=== PATIENT | female | born 2000 | race Caucasian/White ===

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

== ENCOUNTER 2021-11-20 07:38 | Emergency (ER) | payer BC, MEDICAID, OTHER ==
[2021-11-20 07:46] VITALS: BP 154/84; PULSE 159; RESP 18; TEMP 97.8
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
[2021-11-20 09:44] LABS: Amphetamine Screen,Urine Detected (NotDetected); Barbiturate Screen,Urine Not Detected (NotDetected); Benzodiazepines Screen,Urine Not Detected (NotDetected); Cocaine Screen,Urine Not Detected (NotDetected); Methadone Screen, Urine Not Detected (NotDetected); Opiate Screen,Urine Not Detected (NotDetected); Oxycodone Screen, Urine Not Detected (NotDetected); Phencyclidine Screen,Urine Not Detected (NotDetected); Tricyclic Antidepressant,Urine Not Detected (NotDetected); Urn Cannabinoid Scrn Detected (NotDetected)
[2021-11-21 14:27] LABS: C. trachomatis,PCR Positive (Neg,Equiv); Chlamydia trachomatis Source Urine; N. gonorrhoeae,PCR Negative (Neg,Equiv); Neisseria Source Urine
== END 2021-11-20 08:20 | disposition left against medical advice (07) ==
LOC: EC 07:38
DX: Z20.2 Contact with and (suspected) exposure to infections with a predominantly sexual mode of transmission (principal); Z59.00 Homelessness unspecified; F41.9 Anxiety disorder, unspecified; F32.A Depression, unspecified; F17.290 Nicotine dependence, other tobacco product, uncomplicated
CPT/HCPCS: 80306; 81025; 82075; 87491; 87591; 99283

== ENCOUNTER 2021-12-10 08:41 | Inpatient (IN) | payer MEDICAID, OTHER ==
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
[2021-12-10 09:35] LABS: Appearance,Urine Cloudy (Clear); Bacteria,Urine Rare /hpf; Bilirubin,Urine Negative (Negative); Blood,Urine Negative (Negative); Budding Yeast,Urine Many /hpf; Color,Urine Yellow; Glucose,Urine (UA) Negative (Negative); Ketones,Urine Negative (Negative); Leukocyte Esterase,Urine Large (Negative); Mucus,Urine Rare /hpf; Nitrite,Urine Negative (Negative); Protein,Urine Negative (Negative); RBC,Urine <1 /hpf (0-5); Specific Gravity,Urine 1.011 (1.001-1.035); Squamous Epithelial Cell,Urine 4 /hpf (0-4); Urobilinogen,Urine <2.0 mg/dL (<2.0); WBC,Urine 14 /hpf (0-5)
[2021-12-10 09:51] LABS: Amphetamine Screen,Urine Not Detected (NotDetected); Barbiturate Screen,Urine Not Detected (NotDetected); Benzodiazepines Screen,Urine Not Detected (NotDetected); Cocaine Screen,Urine Not Detected (NotDetected); Methadone Screen, Urine Not Detected (NotDetected); Opiate Screen,Urine Not Detected (NotDetected); Oxycodone Screen, Urine Not Detected (NotDetected); Phencyclidine Screen,Urine Not Detected (NotDetected); Tricyclic Antidepressant,Urine Not Detected (NotDetected); Urn Cannabinoid Scrn Detected (NotDetected)
[2021-12-10 10:29] LABS: Basophils % (A) 0 %; Eosinophils # (A) 0.1 k/uL (0-0.7); Eosinophils % (A) 2 %; HCT 38.3 % (34.0-46.0); HGB 13.7 gm/dL (11.4-16.0); Hyperchromasia Slight; Lymphocytes # (A) 0.9 k/uL (1.0-4.8); Lymphocytes % (A) 13 %; MCH 30.7 pg (25.0-35.0); MCHC 35.8 g/dL (31.0-37.0); MCV 85.7 fL (80.0-100.0); Mean Platelet Volume 6.3; Monocytes # (A) 0.3 k/uL (0-1.0); Monocytes % (A) 4 %; Neutrophils # (A) 5.5 k/uL (1.3-7.7); Neutrophils % (A) 79 %; Platelet Count 356 k/uL (150-450); Poikilocytosis Slight; RBC 4.47 m/uL (3.80-5.40)
[2021-12-10 10:41] LABS: ALT 10 U/L (4-34); AST 14 U/L (14-36); African American GFR (CKD) >90 (>60 ml/min/1.73 sqM); Albumin 4.2 g/dL (3.5-5.0); Alkaline Phosphatase 65 U/L (38-126); Anion Gap 5 mmol/L; Blood Urea Nitrogen 9 mg/dL (7-17); Calcium 9.2 mg/dL (8.4-10.2); Carbon Dioxide 29 mmol/L (22-30); Chloride 105 mmol/L (98-107); Glucose 101 mg/dL (74-99); Non-African American GFR(CKD) >90 (>60 ml/min/1.73 sqM); Potassium 3.8 mmol/L (3.5-5.1); Sodium 139 mmol/L (137-145); Total Bilirubin 1.2 mg/dL (0.2-1.3); Total Protein 7.3 g/dL (6.3-8.2)
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
[2021-12-10] MEDS ORDERED: HALOPERIDOL LACTATE 5 MG/ML 1 ML VIAL IM PRN (16:18)
[2021-12-10] MEDS ORDERED: ACETAMINOPHEN TAB 325 MG TAB PO PRN (16:18)
[2021-12-10] MEDS ORDERED: LORazepam 1 MG TAB PO PRN (16:18)
[2021-12-10] MEDS ORDERED: MAGNESIUM HYDROXIDE 2,400 MG/10 ML CUP PO PRN (16:18)
[2021-12-10] MEDS ORDERED: MAG HYDROX/AL HYDROX/SIMETH 30 ML CUP PO PRN (16:18)
[2021-12-10] MEDS ORDERED: LORazepam 2 MG/ML INJ IM PRN (16:20)
[2021-12-10] MEDS ORDERED: haloperidoL 5 MG TAB PO PRN (16:21)
[2021-12-10] MEDS ORDERED: traZODone HCL 50 MG TAB PO PRN (16:22)
[2021-12-10] MEDS: NICOTINE 14MG/24HR PATCH TRANSDERM SCH (17:16)
[2021-12-11] MEDS: NICOTINE 14MG/24HR PATCH TRANSDERM SCH (08:40)
--- NOTE | 2021-12-11 12:17 | P.HP ---
Psychiatric H&P - . H&P Date: 12/11/21 History & Physical: Allergies Allergy/AdvReac Type Severity Reaction Status Date / Time No Known Allergies Allergy Verified 12/10/21 10:29 Vital Signs Temp 99.1 F 12/10/21 16:43 Pulse 104 H 12/10/21 16:43 Resp 16 12/10/21 16:43 BP 120/73 12/10/21 16:43 Pulse Ox 98 12/10/21 08:43 Intake & Output 12/10/21 12/11/21 12/11/21 18:59 06:59 18:59 Weight 64.495 kg Laboratory Last Values WBC 7.0 k/uL (4.0-11.0) 12/10/21 10:15 RBC 4.47 m/uL (3.80-5.40) 12/10/21 10:15 Hgb 13.7 gm/dL (11.4-16.0) 12/10/21 10:15 Hct 38.3 % (34.0-46.0) 12/10/21 10:15 MCV 85.7 fL (80.0-100.0) 12/10/21 10:15 MCH 30.7 pg (25.0-35.0) 12/10/21 10:15 MCHC 35.8 g/dL (31.0-37.0) 12/10/21 10:15 RDW 15.0 % (11.5-15.5) 12/10/21 10:15 Plt Count 356 k/uL (150-450) 12/10/21 10:15 MPV 6.3 12/10/21 10:15 Neutrophils % 79 % 12/10/21 10:15 Lymphocytes % 13 % 12/10/21 10:15 Monocytes % 4 % 12/10/21 10:15 Eosinophils % 2 % 12/10/21 10:15 Basophils % 0 % 12/10/21 10:15 Neutrophils # 5.5 k/uL (1.3-7.7) 12/10/21 10:15 Lymphocytes # 0.9 k/uL (1.0-4.8) L 12/10/21 10:15 Monocytes # 0.3 k/uL (0-1.0) 12/10/21 10:15 Eosinophils # 0.1 k/uL (0-0.7) 12/10/21 10:15 Basophils # 0.0 k/uL (0-0.2) 12/10/21 10:15 Hyperchromasia Slight 12/10/21 10:15 Poikilocytosis Slight 12/10/21 10:15 Sodium 139 mmol/L (137-145) 12/10/21 10:15 Potassium 3.8 mmol/L (3.5-5.1) 12/10/21 10:15 Chloride 105 mmol/L (98-107) 12/10/21 10:15 Carbon Dioxide 29 mmol/L (22-30) 12/10/21 10:15 Anion Gap 5 mmol/L 12/10/21 10:15 BUN 9 mg/dL (7-17) 12/10/21 10:15 Creatinine 0.62 mg/dL (0.52-1.04) 12/10/21 10:15 Est GFR (CKD-EPI)AfAm >90 (>60 ml/min/1.73 sqM) 12/10/21 10:15 Est GFR (CKD-EPI)NonAf >90 (>60 ml/min/1.73 sqM) 12/10/21 10:15 Glucose 101 mg/dL (74-99) H 12/10/21 10:15 Calcium 9.2 mg/dL (8.4-10.2) 12/10/21 10:15 Total Bilirubin 1.2 mg/dL (0.2-1.3) 12/10/21 10:15 AST 14 U/L (14-36) 12/10/21 10:15 ALT 10 U/L (4-34) 12/10/21 10:15 Alkaline Phosphatase 65 U/L (38-126) 12/10/21 10:15 Total Protein 7.3 g/dL (6.3-8.2) 12/10/21 10:15 Albumin 4.2 g/dL (3.5-5.0) 12/10/21 10:15 TSH 2.210 mIU/L (0.465-4.680) 12/10/21 10:32 Urine Color Yellow 12/10/21 09:15 Urine Appearance Cloudy (Clear) H 12/10/21 09:15 Urine pH 8.0 (5.0-8.0) 12/10/21 09:15 Ur Specific Graham 1.011 (1.001-1.035) 12/10/21 09:15 Urine Protein Negative (Negative) 12/10/21 09:15 Urine Glucose (UA) Negative (Negative) 12/10/21 09:15 Urine Ketones Negative (Negative) 12/10/21 09:15 Urine Blood Negative (Negative) 12/10/21 09:15 Urine Nitrite Negative (Negative) 12/10/21 09:15 Urine Bilirubin Negative (Negative) 12/10/21 09:15 Urine Urobilinogen <2.0 mg/dL (<2.0) 12/10/21 09:15 Ur Leukocyte Esterase Large (Negative) H 12/10/21 09:15 Urine RBC <1 /hpf (0-5) 12/10/21 09:15 Urine WBC 14 /hpf (0-5) H 12/10/21 09:15 Ur Squamous Epith Cells 4 /hpf (0-4) 12/10/21 09:15 Urine Bacteria Rare /hpf (None) H 12/10/21 09:15 Urine Mucus Rare /hpf (None) H 12/10/21 09:15 Urine Yeast (Budding) Many /hpf (None) H 12/10/21 09:15 Urine HCG, Qual Not Detected (Not Detectd) 12/10/21 09:15 Urine Opiates Screen Not Detected (NotDetected) 12/10/21 09:15 Ur Oxycodone Screen Not Detected (NotDetected) 12/10/21 09:15 Urine Methadone Screen Not Detected (NotDetected) 12/10/21 09:15 Ur Propoxyphene Screen Not Detected (NotDetected) 12/10/21 09:15 Ur Barbiturates Screen Not Detected (NotDetected) 12/10/21 09:15 U Tricyclic Antidepress Not Detected (NotDetected) 12/10/21 09:15 Ur Phencyclidine Scrn Not Detected (NotDetected) 12/10/21 09:15 Ur Amphetamines Screen Not Detected (NotDetected) 12/10/21 09:15 U Methamphetamines Scrn Not Detected (NotDetected) 12/10/21 09:15 U Benzodiazepines Scrn Not Detected (NotDetected) 12/10/21 09:15 Urine Cocaine Screen Not Detected (NotDetected) 12/10/21 09:15 U Marijuana (THC) Screen Detected (NotDetected) H 12/10/21 09:15 Coronavirus (PCR) Not Detected (Not Detectd) 12/10/21 13:39 IDENTIFYING DATA: Patient is a 21-year-old, single, unemployed, female, who is currently in detention hold, who presents to the hospital from [facility], under petition for acute psychosis and bizarre behaviors. HPI: Patient presented to the hospital on 12/10/2021, brought into the hospital from the detention under petition for psychosis. Petition was filled out by Amanda Chairez (sill worker) who wrote: Inmate is often mute with minimal expression, suspicious, guarded, not attending to her ADLs. Stated at one point she is expressing psychosis and was mute. Inmate has difficulty comprehending basic commands due to psychosis." There is also suspicion that the patient had a bad accident with a head injury and was presenting with odd and psychotic behavior shortly after. As per EPS assessment, the patient was also noted to be very suspicious and guarded. She is minimal and conversation however would inquire from the EPS nurse what was written down on her paper. The patient was subsequently certified and admitted to the psychiatric unit. Upon evaluation on the psychiatric unit, the patient continues to display bizarre and disorganized behavior. She has been noted by staff to wander into other patient's rooms and often needs redirection. Oddly, before the initial psychiatric interview, the patient requested to go to the restroom. The patient did not go to the restroom and return for the interview. She got up multiple times during the psychiatric interview to "use the restroom." She however again just walk down the hallway and walked back up to the office. Upon assessment, the patient is minimal and conversation. She is unable to provide any clear history of events leading up to this hospitalization. When asked if she was taking any medications, the patient replies no. She does not respond to any assessment regarding any suicidal or homicidal ideation. She does not respond when answering if she is experiencing any auditory or visual hallucinations. Review of the patient's chart revealed that the patient has had a significant history of polysubstance abuse including methamphetamines and marijuana. The patient has also had previous overdose attempts with ibuprofen. She was last admitted onto our psychiatric unit in January 2020 however was discharged with no medications. She was not noted to be selectively mute then. The patient is currently incarcerated. Although she was unable to provide any history as to reasons why she was incarcerated, as per review, the patient has had multiple charges including breaking and entering, assault of a assistant chief of police, and has been in detention since 12/03/2021. PAST PSYCHIATRIC HISTORY: Patient is unable to provide any history at this time. Review of the patient's chart revealed previous diagnosis of methamphetamine use disorder, cannabis use disorder, other stimulant use disorder, and depression with a history of suicide by overdose. Previous psychiatric medications include Zoloft for anxiety. Unable to determine other medications at this time. She was last hospitalized on the psychiatric unit in January of 2020. Previous suicide attempts by overdose. PMH: Past Medical History: No Reported History Additional Past Medical History / Comment(s): Proteinuria History of Any Multi-Drug Resistant Organisms: None Reported Past Surgical History: No Surgical Hx Reported Additional Past Surgical History / Comment(s): [place] Teeth Removed Past Anesthesia/Blood Transfusion Reactions: No Reported Reaction Past Psychological History: Anxiety, Depression Smoking Status: Vaper Past Alcohol Use History: Occasional Past Drug Use History: None Reported ALLERGIES: NO KNOWN DRUG ALLERGIES CHEMICAL DEPENDENCY HISTORY: Patient has a significant history of marijuana, methamphetamine, and other psychostimulant use. FAMILY PSYCHIATRIC/SUBSTANCE USE HISTORY: Unable to determine at this time. SOCIAL HISTORY: Much of this history is through chart review. Patient was reportedly born in [place] and raised by her mother until her mother's in 2016. She is single, and has no children. She is currently unemployed. MENTAL STATUS EXAM: General Appearance: Patient appears to be stated age is alert and difficult to direct, and uncooperative. Slightly disheveled hygiene and grooming. Behavior: Patient is seated but display psychomotor agitation. Very poor eye contact. Speech: Patient's speech is nonspontaneous, minimal, low in volume, monotone. Mood/Affect: Patient states that she is "okay, affect is blunted and guarded. Suicidality/Homicidality: Unable to assess Perceptions: Unable to assess Though content/process: Patient appears to be responding to internal stimuli. Memory and concentration: Unable to assess. Judgment and insight: Poor STRENGTHS/WEAKNESSES: Unable to identify patient's strengths at this time. Weakness is that the patient is currently incarcerated and is displaying some significant symptoms of severe mental illness. INTELLECT: Unable to assess IMPRESSIONS: Acute psychotic episode Rule out schizoaffective disorder Cannabis use disorder Methamphetamine use disorder, as per history PLAN: -Patient is admitted under involuntary status to MHU for stabilization of psychiatric symptoms and safety. A second certification was completed and along with petition will be filed for court. -Medications : Risperdal 1 mg by mouth twice a day for acute psychosis. Likely transition the patient to a long-acting injectable Such as Risperdal Consta or Invega Sustenna. -Ativan and Haldol PRN for agitation/aggression -Patient was informed of the risks, benefits and side effects of the medication however is unable to acknowledge understanding. -Internal medicine to perform history and physical examination. -SW on board for discharge planning. Encourage patient to participate in groups to work on coping skills. 12/11/21 12:17 12/11/21 12:17
--- NOTE | 2021-12-11 17:56 | P.HPMEDMHU ---
<Jeremías Chase - Last Filed: 12/11/21 17:46> History of Present Illness H&P Date: 12/11/21 History of Presenting Illness: The patient is a 21-year-old female with a past medical history of polysubstance abuse with marijuana and methamphetamines as well as other psychostimulant usage. She is currently admitted to the inpatient mental health unit under psychiatry team for evaluation of psychosis. Patient was [facility] from [facility] and was brought in for acute psychosis and bizarre behaviors. We have been consulted for medical management throughout hospitalization. upon evaluation in mental health unit, patient very cautious and skittish with paranoid behaviors. Answered only limited questions and answered these questions with only yes or no answers. She denied experiencing any pain or discomfort. She denied any chances of and denied any problems with urination. Patient was ambulatory on unit and was ambulatory with a steady gait. labs reviewed. CBC and CMP unremarkable TSH normal findings at 2.210. Urinalysis positive for leukocytes and 14 WBCs, patient denies urinary complaints at this time. Urine hCG negative for . Urine drug screen positive for marijuana. Review of systems: Pertinent positives and negatives as discussed in HPI, a complete review of systems was performed and all other systems are negative. Physical exam: Vital signs reviewed and stable. General: Nontoxic, no distress and appears stated age. disheveled appearance Derm: Skin warm and dry, normal coloration for ethnicity. Head: Atraumatic, normocephalic and symmetric. Eyes: EOMs intact, no lid lag, and anicteric sclera Mouth: no lip lesions, mucus membranes moist Cardiovascular: regular rate and rhythm with normal S1S2, no murmur, positive posterior tibial pulses bilaterally, and cap refill < 2 seconds. Lungs: Respirations even, regular, and unlabored on room air. Lungs CTA bilaterally, no rhonchi, no rales, no wheezing, and no accessory muscle usage. Abdominal: soft, nontender to palpation, no guarding, no appreciable organomegaly Ext: ROM intact. No gross muscle atrophy, no edema, no contractures Neuro: Speech clear, face symmetrical. Pt showing no signs of obvious neurological deficits, however limited exam due to pt's only answering limited questions and with only yes and no answers. Psych: patient appeared very cautious and skittish with paranoid behaviors. Assessment and Plan of Care: Methamphetamine abuse Psychostimulant usage Cannabis use/abuse -urine drug screen only positive for marijuana at this time. -Patient to receive continued education on the risks of continued drug use/abuse. Psychosis Paranoia -Management per primary admitting psychiatry team. -Provide safe and supportive care. Thank you for allowing us to participate in the care of this pleasant patient. Do not hesitate to contact us with questions. Someone can be reached from the [facility] hospitalist group all hours of the day at [phone] or via [employer]. Past Medical History Past Medical History: No Reported History Additional Past Medical History / Comment(s): Proteinuria History of Any Multi-Drug Resistant Organisms: None Reported Past Surgical History: No Surgical Hx Reported Additional Past Surgical History / Comment(s): [place] Teeth Removed Past Anesthesia/Blood Transfusion Reactions: No Reported Reaction Past Psychological History: Anxiety, Depression Smoking Status: Vaper Past Alcohol Use History: Occasional Past Drug Use History: None Reported - Past Family History Mother Family Medical History: Asthma Additional Family Medical History / Comment(s): , anoxic encephalopathy family Family Medical History: Unable to Obtain Medications and Allergies Home Medications Medication Instructions Recorded Confirmed Type No Known Home Medications 12/10/21 12/10/21 History Allergies Allergy/AdvReac Type Severity Reaction Status Date / Time No Known Allergies Allergy Verified 12/10/21 10:29 Physical Exam Vitals: Vital Signs Temp Pulse Resp BP 12/10/21 16:43 99.1 F 104 H 16 120/73 Cranial Nerve Examination - Cranial Nerves Cranial Nerve II- Optic: Intact Cranial Nerve III- Oculomotor: Intact Cranial Nerve IV- Trochlear: Intact Cranial Nerve V- Trigeminal: Intact Cranial Nerve - Abducens: Intact Cranial Nerve VII- Facial: Intact Cranial Nerve VIII- Auditory: Intact Cranial Nerve IX- Glossopharyngeal: Intact Cranial Nerve X- Vagus: Intact Cranial Nerve XI- Accessory: Intact Cranial Nerve XII- Hypoglossal: Intact Results CBC & Chem 7: 12/10/21 10:15 12/10/21 10:15 Labs: Microbiology - Last 24 Hours (Table) 12/10/21 09:15 Urine Culture - Final Urine,Clean Catch <Karis Schmitz - Last Filed: 12/11/21 20:16> History of Present Illness Jeremías Chase NP rendered care for this patient independently, reviewed the findings and plan as documented in the note above. I did not physically speak with or examine the patient on this date. Physical Exam Osteopathic Statement: *. No significant issues noted on an osteopathic structural exam other than those noted in the History and Physical/Consult. Results CBC & Chem 7: 12/10/21 10:15 12/10/21 10:15 Labs: Microbiology - Last 24 Hours (Table) 12/10/21 09:15 Urine Culture - Final Urine,Clean Catch
[2021-12-11] MEDS ORDERED: diphenhydrAMINE 50 MG/ML 1 ML VIAL IM STA (21:22)
[2021-12-11] MEDS ORDERED: LORazepam 2 MG/ML INJ IM ONE (21:22)
[2021-12-12] MEDS: risperiDONE 1 MG TAB PO SCH ×3 (01:14→20:41)
[2021-12-12] MEDS: NICOTINE 14MG/24HR PATCH TRANSDERM SCH ×2 (08:03→13:54)
--- NOTE | 2021-12-12 11:29 | P.PN ---
Progress Note - Text Progress Note Date: 12/12/21 Interval History: Patient was seen wandering the hallways and was directable and agreeable to speak with the selling underwriter in her room. Patient is very minimal conversation. She is currently only alert to person and is unable to identify place and time. She refused her psychotropic medications. She does not respond to any questioning during the psychiatric interview. She asked why she was in the hospital and when answered, the patient replies that she did not know that she was in [facility]. She otherwise does not answer any other questions at this time. Mental Status Exam: General Appearance: Patient appears to be stated age is alert, directable, and mostly uncooperative. Behavior:. Patient is staring blankly and standing in the middle of her room. Speech: Patient's speech is nonspontaneous, minimal, monotone. Mood/Affect: Mood cannot be assessed. Affect appears to be flat. Suicidality/Homicidality: Unable to assess Perceptions: Unable to assess Though content/process: Unable to asses Memory and concentration: Grossly poor. Patient is alert and oriented to self only Judgment and insight: Poor Vital Signs Temp 99.1 F 12/10/21 16:43 Pulse 104 H 12/10/21 16:43 Resp 16 12/10/21 16:43 BP 120/73 12/10/21 16:43 Pulse Ox 98 12/10/21 08:43 Assessment Acute psychotic episode Rule out schizoaffective disorder Cannabis use disorder Methamphetamine use disorder, as per history Plan: -Patient continues to meet criteria for inpatient psychiatric admission for symptom stabilization and safety. A second certification was completed and along with petition will be filed for court. -Medications: Risperdal 1 mg by mouth twice a day for acute psychosis. We may have to await a court order for mental health treatment. -When necessary Ativan and Haldol for agitation/aggression. -SW on board for discharge planning. Encouraged the patient to participate in milieu.
[2021-12-13] MEDS: risperiDONE 1 MG TAB PO SCH (08:23)
[2021-12-13] MEDS: NICOTINE 14MG/24HR PATCH TRANSDERM SCH (08:23)
--- NOTE | 2021-12-13 13:29 | P.PN ---
Progress Note - Text Interval history: Patient was seen [wandering the hallways] and was too suspicious to speak with the writer editor. She mumbled when asked a few questions, but would not agree to interview. Taking qhs dose of risperdal but not am dose Mental status exam: General Appearance: [Patient appears to be older than stated age. Dressed casually] Behavior: Suspicious Speech: Low volume, minimal, mumbling Mood/Affect: Could not assess Suicidality/Homicidality: Could not assess Perceptions: Could not assess Though content/process: Appears to be suspicious Memory and concentration: Could not assess Judgment and insight: poor Assessment/Plan: Continue with current diagnosis. Patient continues to meet criteria for inpatient psychiatric admission for symptom stabilization and safety.[ Increase Risperdal to 2 mg twice a day] Monitor for medication compliance and for any psychotropic medication side effects. Will continue to monitor ongoing response to treatment. Encouraged participation in milieu.
[2021-12-13] MEDS: risperiDONE 2 MG TAB PO SCH (21:11)
[2021-12-14] MEDS: risperiDONE 2 MG TAB PO SCH ×2 (07:49→21:04)
[2021-12-14] MEDS: NICOTINE 14MG/24HR PATCH TRANSDERM SCH ×2 (07:49→21:04)
--- NOTE | 2021-12-14 14:36 | P.PN ---
Progress Note - Text Interval history: Patient was seen [wandering the hallways] but she refused multiple attempts for an interview. Mental status exam: General Appearance: 21-year-old female, appears older than stated age, dressed casually, usually wandering the hallways, but was seen on the floor crying after being on the phone Behavior: Slightly bizarre behavior Speech: Low volume, monotone, many positives Mood/Affect: Constricted Suicidality/Homicidality: Could not assess Perceptions: Could not assess Though content/process: Appears to be paranoid and suspicious, thought blocking present Memory and concentration: Could not assess Judgment and insight: Poor Assessment/Plan: Continue with current diagnosis. Patient continues to meet criteria for inpatient psychiatric admission for symptom stabilization and safety.[Patient will be maintained on current psychotropic medication regimen.] Monitor for medication compliance and for any psychotropic medication side effects. Will continue to monitor ongoing response to treatment. Encouraged participation in milieu.
[2021-12-15] MEDS: risperiDONE 2 MG TAB PO SCH ×2 (08:24→21:00)
[2021-12-15] MEDS: NICOTINE 14MG/24HR PATCH TRANSDERM SCH (08:24)
--- NOTE | 2021-12-15 11:40 | P.PN ---
Progress Note - Text Progress Note Date: 12/15/21 Interval History: Patient was seen wandering the hallways and was directable and agreeable to speak with the group underwriter in her room. Patient continues to be minimal in conversation. She denies any suicidal or homicidal ideation, intention, and/or plan. She denies any auditory or visual hallucinations. She reports no paranoia or other delusions. She has been adherent with her medications but has been noted by staff to attempt to "cheek" her medications. She is also noted to try and elope from the psychiatric unit. She continues to be a poor historian of events leading up to hospitalization. She continues to interact with staff and peers in a bizarre manner and appears to respond to internal stimuli. Mental Status Exam: General Appearance: Patient appears to be stated age is alert, directable, but mostly uncooperative. Behavior:. Patient is staring blankly lying down in bed. Speech: Patient's speech is nonspontaneous, minimal, monotone. Mood/Affect: Mood is "okay." Affect appears to be flat. Guarded. Suicidality/Homicidality: Denies any suicidal or homicidal ideation. Perceptions: Denies any auditory or visual hallucinations. Though content/process: No delusional thought content is endorsed. Thought process - patient appears to respond to internal stimuli. Memory and concentration: Grossly poor. Patient is alert and oriented to self only Judgment and insight: Poor Vital Signs Temp 97.5 F L 12/14/21 07:48 Pulse 113 H 12/14/21 07:48 Resp 12 12/14/21 07:48 BP 120/64 12/14/21 07:48 Pulse Ox 99 12/14/21 07:48 Intake & Output 12/14/21 12/15/21 12/15/21 18:59 06:59 18:59 Weight 65 kg Assessment Acute psychotic episode Rule out schizoaffective disorder Cannabis use disorder Methamphetamine use disorder, as per history Plan: -Patient continues to meet criteria for inpatient psychiatric admission for symptom stabilization and safety. A second certification was completed and along with petition will be filed for court. -Medications: Continue Risperdal 2 mg by mouth twice a day for acute psychosis. Will titrate tomorrow. -When necessary Ativan and Haldol for agitation/aggression. -SW on board for discharge planning. Encouraged the patient to participate in milieu.
[2021-12-16] MEDS: NICOTINE 14MG/24HR PATCH TRANSDERM SCH (08:44)
[2021-12-16] MEDS: risperiDONE 2 MG TAB PO SCH (08:44)
--- NOTE | 2021-12-16 11:04 | P.PN ---
Progress Note - Text Progress Note Date: 12/16/21 Interval History: Patient was seen wandering the hallways and was directable and agreeable to speak with the script writer in her room. The patient continues to be minimal in conversation. The only complete sentence she states is "when can I go home?" She is currently denying any suicidal or homicidal ideation, intention, and/or plan. She is denying any auditory or visual or she denies any paranoia or other delusions. She has been noted by staff and peers to be repetitive, often echoing what was said shortly before. She has been adherent with medications and is denying any significant side effects at this time. Mental Status Exam: General Appearance: Patient appears to be stated age is alert, directable, and attempts to cooperate. Behavior:. Patient is staring blankly lying down in bed. Speech: Patient's speech is nonspontaneous, minimal, monotone. Echolalia. Mood/Affect: Mood is "okay." Affect appears to be flat. Guarded. Suicidality/Homicidality: Denies any suicidal or homicidal ideation. Perceptions: Denies any auditory or visual hallucinations. Though content/process: No delusional thought content is endorsed. Thought process - patient appears to respond to internal stimuli. Memory and concentration: Grossly poor. Patient is alert and oriented to self only Judgment and insight: Poor Vital Signs Temp 98.8 F 12/16/21 07:14 Pulse 106 H 12/16/21 07:14 Resp 12 12/14/21 07:48 BP 112/58 12/16/21 07:14 Pulse Ox 97 12/16/21 07:14 Assessment Acute psychotic episode Rule out schizoaffective disorder Rule out catatonia Cannabis use disorder Methamphetamine use disorder, as per history Plan: -Patient continues to meet criteria for inpatient psychiatric admission for symptom stabilization and safety. A second certification was completed and along with petition will be filed for court. -Medications: Increase Risperdal to 2.5 mg by mouth twice a day for acute psychosis. Start Ativan 2 mg by mouth twice a day for catatonia -When necessary Ativan and Haldol for agitation/aggression. -SW on board for discharge planning. Encouraged the patient to participate in milieu.
[2021-12-16] MEDS: LORazepam 1 MG TAB PO SCH (21:24)
[2021-12-16] MEDS: risperiDONE 1 MG TAB PO SCH (21:25)
[2021-12-17 06:54] VITALS: RESP 16
[2021-12-17] MEDS: NICOTINE 14MG/24HR PATCH TRANSDERM SCH (08:32)
[2021-12-17] MEDS: LORazepam 1 MG TAB PO SCH ×2 (08:32→21:58)
[2021-12-17] MEDS: risperiDONE 1 MG TAB PO SCH ×2 (08:32→21:58)
--- NOTE | 2021-12-17 12:16 | P.PN ---
Progress Note - Text Progress Note Date: 12/17/21 Interval History: Patient was seen wandering the hallways and was directable and agreeable to speak with the service writer in her room. Patient reports that she is feeling better. She is much more spontaneous in conversation. She is currently denying any suicidal or homicidal ideation, intention, and/or plan. She is denying any auditory or visual hallucinations. She reports no paranoia or other delusions. The patient is inquiring about discharge. She was informed that she is currently in [facility] hold. The patient became upset with this provider after this provider informed her that she was. She is requesting that she is discharged so that she may go home before she goes to [facility]. She was informed that this is not likely the case. She then calls this provider "retarded for not knowing the law." She is otherwise adherent with her medications and is not reporting any significant side effects at this time. She deferred mental health court. Mental Status Exam: General Appearance: Patient appears to be stated age is alert, directable, and attempts to cooperate. Behavior: Patient maintains good eye contact. She is lying down in bed with no agitated behavior. Speech: Patient's speech is spontaneous, monotone, however more verbal and fluent today. Mood/Affect: Mood is "feeling better" Affect appears to be irritable. Suicidality/Homicidality: Denies any suicidal or homicidal ideation. Perceptions: Denies any auditory or visual hallucinations. Though content/process: No delusional thought content is endorsed. Thought process appears to be linear, logical, and goal oriented. Memory and concentration: Significantly improved. Patient is able to recall events prior to this hospitalization. Judgment and insight: Poor Vital Signs Temp 97.7 F 12/17/21 06:47 Pulse 101 H 12/17/21 06:47 Resp 16 12/17/21 06:47 BP 103/59 12/17/21 06:47 Pulse Ox 97 12/16/21 07:14 Assessment Acute psychotic episode Rule out schizoaffective disorder Rule out catatonia Cannabis use disorder Methamphetamine use disorder, as per history Plan: -Patient continues to meet criteria for inpatient psychiatric admission for symptom stabilization and safety. A second certification was completed and along with petition will be filed for court. Patient deferred mental health court. -Medications: Continue Risperdal 2.5 mg by mouth twice a day for acute psychosis. Decrease Ativan to 1 mg by mouth twice a day for catatonia -Anticipate discharge back to [facility] tomorrow. -When necessary Ativan and Haldol for agitation/aggression. -SW on board for discharge planning. Encouraged the patient to participate in milieu.
[2021-12-18 06:49] VITALS: BP 113/63; PULSE 99; TEMP 98.3
[2021-12-18] MEDS: risperiDONE 1 MG TAB PO SCH (08:30)
[2021-12-18] MEDS: LORazepam 1 MG TAB PO SCH (08:31)
[2021-12-18] MEDS: NICOTINE 14MG/24HR PATCH TRANSDERM SCH (09:30)
--- NOTE | 2021-12-18 11:50 | P.DS ---
Providers Date of admission: 12/10/21 16:04 Expected date of discharge: 12/18/21 Attending physician: Juan Francisco Garcia MD Consults: 12/10/21 16:18 Consult Physician Routine Consulting Provider: Tam Choi Consult Reason/Comments: history and physical/medical management Do you want consulting provider notified?: Yes Primary care physician: Stated None - Discharge Diagnosis(es) (1) Schizoaffective disorder, bipolar type Current Visit: Yes Status: Acute Priority: High (2) Nicotine dependence Current Visit: Yes Status: Chronic Priority: Medium (3) Cannabis use disorder, moderate, dependence Current Visit: Yes Status: Chronic Priority: Medium (4) Amphetamine and psychostimulant-induced mood disorder Current Visit: No Status: Chronic Priority: Medium Hospital Course: Admission HPI: Patient is a 21-year-old, single, unemployed, female, who is currently in long term hold, who presents to the hospital from [facility], under petition for acute psychosis and bizarre behaviors. Patient presented to the hospital on 12/10/2021, brought into the hospital from the long term under petition for psychosis. Petition was filled out by Amanda Chairez (workers compensation claims analyst) who wrote: Inmate is often mute with minimal expression, suspicious, guarded, not attending to her ADLs. Stated at one point she is expressing psychosis and was mute. Inmate has difficulty comprehending basic commands due to psychosis." There is also suspicion that the patient had a bad accident with a head injury and was presenting with odd and psychotic behavior shortly after. As per EPS assessment, the patient was also noted to be very suspicious and guarded. She is minimal and conversation however would inquire from the EPS nurse what was written down on her paper. The patient was subsequently certified and admitted to the psychiatric unit. Upon evaluation on the psychiatric unit, the patient continues to display bizarre and disorganized behavior. She has been noted by staff to wander into other patient's rooms and often needs redirection. Oddly, before the initial psychiatric interview, the patient requested to go to the restroom. The patient did not go to the restroom and return for the interview. She got up multiple times during the psychiatric interview to "use the restroom." She however again just walk down the hallway and walked back up to the office. Upon assessment, the patient is minimal and conversation. She is unable to provide any clear history of events leading up to this hospitalization. When asked if she was taking any medications, the patient replies no. She does not respond to any assessment regarding any suicidal or homicidal ideation. She does not respond when answering if she is experiencing any auditory or visual hallucinations. Review of the patient's chart revealed that the patient has had a significant history of polysubstance abuse including methamphetamines and marijuana. The patient has also had previous overdose attempts with ibuprofen. She was last admitted onto our psychiatric unit in January 2020 however was discharged with no medications. She was not noted to be selectively mute then. The patient is currently incarcerated. Although she was unable to provide any history as to reasons why she was incarcerated, as per review, the patient has had multiple charges including breaking and entering, assault of a harbor patrol police, and has been in long term since 12/03/2021. Patient is unable to provide any history at this time. Review of the patient's chart revealed previous diagnosis of methamphetamine use disorder, cannabis use disorder, other stimulant use disorder, and depression with a history of suicide by overdose. Previous psychiatric medications include Zoloft for anxiety. Azalia ble to determine other medications at this time. She was last hospitalized on the psychiatric unit in January of 2020. Previous suicide attempts by overdose. Hospital course: Upon admission to the unit patient was initially not participating in treatment, responding to internal stimuli and was selectively mute. Patient was subsequently certified for psychiatric treatment. She was however agreeable to take medications and was adherent with her risperdal. She displayed an initial response to the treatment. She however, continued to display atypical symptoms of catatonia. She continued to be selectively mute and would display echolalia, often repeating what other patient's stated. The decision was made to administer ativan for catatonia. She displayed significant improvement in regards to her catatonic symptoms and became more spontaneous. The patient was informed that she was a long term hold however patient continued to state she does not need to go to long term and would like to go home. On the day of discharge, the patient denies any suicidal or homicidal ideation, intention, and/or plan. She reports no auditory or visual hallucinations. She denies any paranoia or other delusions. She has been adherent with medications and reports no significant side effects. The patient was counseled at length on her medications and the need for regular compliance. She was counseled on substance abuse and the importance of abstaining from all substances including methamphetamines, cannabis, alcohol, and other drugs. She was encouraged to follow-up with [facility]. As she met no criteria for continued inpatient psychiatric hospitalization, she was subsequently discharged to long term. Mental status exam: General Appearance: Patient appears to be stated age is alert, pleasant, and cooperative. Patient is in no acute distress and has fair hygiene and grooming. Behavior: Patient is calmly seated without any agitated behavior. Speech: Patient's speech is fluent and nonpressured. Mood/Affect: Patient reports their mood is "I'm ready to go", affect is congruent and blunted. Suicidality/Homicidality: Patient denies having any suicidal or homicidal ideation intent or plan. Perceptions: Patient denies any auditory or visual hallucinations. Though content/process: There is no evidence of any delusional thought content and thought process is linear and goal-directed. Memory and concentration: AOX3, grossly intact for the purposes of this session. Can spell "WORLD" backwards correctly. Judgment and insight: Improved with guarded prognosis Vital Signs Temp 98.3 F 12/18/21 06:33 Pulse 99 12/18/21 06:33 Resp 16 12/18/21 06:33 BP 113/63 12/18/21 06:33 Pulse Ox 97 12/16/21 07:14 Laboratory Results WBC 7.0 k/uL (4.0-11.0) 12/10/21 10:15 RBC 4.47 m/uL (3.80-5.40) 12/10/21 10:15 Hgb 13.7 gm/dL (11.4-16.0) 12/10/21 10:15 Hct 38.3 % (34.0-46.0) 12/10/21 10:15 MCV 85.7 fL (80.0-100.0) 12/10/21 10:15 MCH 30.7 pg (25.0-35.0) 12/10/21 10:15 MCHC 35.8 g/dL (31.0-37.0) 12/10/21 10:15 RDW 15.0 % (11.5-15.5) 12/10/21 10:15 Plt Count 356 k/uL (150-450) 12/10/21 10:15 MPV 6.3 12/10/21 10:15 Neutrophils % 79 % 12/10/21 10:15 Lymphocytes % 13 % 12/10/21 10:15 Monocytes % 4 % 12/10/21 10:15 Eosinophils % 2 % 12/10/21 10:15 Basophils % 0 % 12/10/21 10:15 Neutrophils # 5.5 k/uL (1.3-7.7) 12/10/21 10:15 Lymphocytes # 0.9 k/uL (1.0-4.8) L 12/10/21 10:15 Monocytes # 0.3 k/uL (0-1.0) 12/10/21 10:15 Eosinophils # 0.1 k/uL (0-0.7) 12/10/21 10:15 Basophils # 0.0 k/uL (0-0.2) 12/10/21 10:15 Hyperchromasia Slight 12/10/21 10:15 Poikilocytosis Slight 12/10/21 10:15 Sodium 139 mmol/L (137-145) 12/10/21 10:15 Potassium 3.8 mmol/L (3.5-5.1) 12/10/21 10:15 Chloride 105 mmol/L (98-107) 12/10/21 10:15 Carbon Dioxide 29 mmol/L (22-30) 12/10/21 10:15 Anion Gap 5 mmol/L 12/10/21 10:15 BUN 9 mg/dL (7-17) 12/10/21 10:15 Creatinine 0.62 mg/dL (0.52-1.04) 12/10/21 10:15 Est GFR (CKD-EPI)AfAm >90 (>60 ml/min/1.73 sqM) 12/10/21 10:15 Est GFR (CKD-EPI)NonAf >90 (>60 ml/min/1.73 sqM) 12/10/21 10:15 Glucose 101 mg/dL (74-99) H 12/10/21 10:15 Calcium 9.2 mg/dL (8.4-10.2) 12/10/21 10:15 Total Bilirubin 1.2 mg/dL (0.2-1.3) 12/10/21 10:15 AST 14 U/L (14-36) 12/10/21 10:15 ALT 10 U/L (4-34) 12/10/21 10:15 Alkaline Phosphatase 65 U/L (38-126) 12/10/21 10:15 Total Protein 7.3 g/dL (6.3-8.2) 12/10/21 10:15 Albumin 4.2 g/dL (3.5-5.0) 12/10/21 10:15 TSH 2.210 mIU/L (0.465-4.680) 12/10/21 10:32 Urine Color Yellow 12/10/21 09:15 Urine Appearance Cloudy (Clear) H 12/10/21 09:15 Urine pH 8.0 (5.0-8.0) 12/10/21 09:15 Ur Specific [place] 1.011 (1.001-1.035) 12/10/21 09:15 Urine Protein Negative (Negative) 12/10/21 09:15 Urine Glucose (UA) Negative (Negative) 12/10/21 09:15 Urine Ketones Negative (Negative) 12/10/21 09:15 Urine Blood Negative (Negative) 12/10/21 09:15 Urine Nitrite Negative (Negative) 12/10/21 09:15 Urine Bilirubin Negative (Negative) 12/10/21 09:15 Urine Urobilinogen <2.0 mg/dL (<2.0) 12/10/21 09:15 Ur Leukocyte Esterase Large (Negative) H 12/10/21 09:15 Urine RBC <1 /hpf (0-5) 12/10/21 09:15 Urine WBC 14 /hpf (0-5) H 12/10/21 09:15 Ur Squamous Epith Cells 4 /hpf (0-4) 12/10/21 09:15 Urine Bacteria Rare /hpf (None) H 12/10/21 09:15 Urine Mucus Rare /hpf (None) H 12/10/21 09:15 Urine Yeast (Budding) Many /hpf (None) H 12/10/21 09:15 Urine HCG, Qual Not Detected (Not Detectd) 12/10/21 09:15 Urine Opiates Screen Not Detected (NotDetected) 12/10/21 09:15 Ur Oxycodone Screen Not Detected (NotDetected) 12/10/21 09:15 Urine Methadone Screen Not Detected (NotDetected) 12/10/21 09:15 Ur Propoxyphene Screen Not Detected (NotDetected) 12/10/21 09:15 Ur Barbiturates Screen Not Detected (NotDetected) 12/10/21 09:15 U Tricyclic Antidepress Not Detected (NotDetected) 12/10/21 09:15 Ur Phencyclidine Scrn Not Detected (NotDetected) 12/10/21 09:15 Ur Amphetamines Screen Not Detected (NotDetected) 12/10/21 09:15 U Methamphetamines Scrn Not Detected (NotDetected) 12/10/21 09:15 U Benzodiazepines Scrn Not Detected (NotDetected) 12/10/21 09:15 Urine Cocaine Screen Not Detected (NotDetected) 12/10/21 09:15 U Marijuana (THC) Screen Detected (NotDetected) H 12/10/21 09:15 Coronavirus (PCR) Not Detected (Not Detectd) 12/10/21 13:39 Impression: Schizoaffective disorder, bipolar type Cannabis use disorder Nicotine cessation Methamphetamine use disorder, as per history Plan: -Continue with discharge today as patient has improved and stabilized psychiatrically and is not currently an imminent threat to herself and/or others. Patient will remain at chronically elevated risk for harm to self and/or others due to her impulsivity and polysubstance abuse. -Continue medications: Risperdal 2.5 mg by mouth twice daily for schizoaffective disorder Habitrol patches for nicotine cessation Ativan 2 mg twice daily for catatonia for 1 week. -Patient was counseled on the need for medication compliance and appropriate follow-up at mental health and also primary care for medical issues. Patient verbalized understanding and agreed. -Social work to arrange for and conduct family meeting to ensure safety upon discharge and answer any questions/concerns. Social work also to arrange for patients follow up appointments with [facility] for psychiatric care along with follow up with primary care provider. -Patient counseled on abstaining from recreational drugs and marijuana and alcohol. Was informed/educated on the adverse effects on their physical and mental health. Patient verbally agreed and understood. -Patient is subsequently discharged back to long term. -Patient was instructed to return to the hospital or seek immediate medical care if their psychiatric or medical symptoms do worsen or reoccur. -Psychoeducation and supportive therapy provided to patient. Risks and benefits of pharmacological treatment versus the risks and benefits of nontreatment weight and discussed. Informed consent discussion held. Common side effects of psychotropics discussed such as, but not limited to headache, GI disturbance, sexual dysfunction, movement disorders, sedation, and orthostatic hypotension. Life threatening and blackbox warnings of prescribed medications also discussed. Potential risks of operating a vehicle or heavy machinery discussed with patient at length. Advised on importance of compliance and a reliable and responsible manner. Patient advised to review FDA consumer labeling of all medications prior to taking. Patient verbalized understanding of potential risks, and agrees with current treatment plan. Patient advised to medically contact physician/emergency personnel if any acute changes in condition occur. Allergies Allergy/AdvReac Type Severity Reaction Status Date / Time No Known Allergies Allergy Verified 12/10/21 10:29 Patient Condition at Discharge: Stable Plan - Discharge Summary New Discharge Prescriptions: New Nicotine 14Mg/24Hr Patch [Habitrol] 1 patch TRANSDERM DAILY 30 Days patch risperiDONE [RisperDAL] 2.5 mg PO BID 30 Days tab LORazepam [Ativan] 2 mg PO BID 7 Days #14 tab Discharge Medication List LORazepam [Ativan] 2 mg PO BID 7 Days #14 tab 12/18/21 [Rx] Nicotine 14Mg/24Hr Patch [Habitrol] 1 patch TRANSDERM DAILY 30 Days patch 12/18/21 [Rx] risperiDONE [RisperDAL] 2.5 mg PO BID 30 Days tab 12/18/21 [Rx] Follow up Appointment(s)/Referral(s): [facility] [NON[facility]STA[facility]] - 1 Week Patient Instructions/Handouts: How to Stop Smoking (DC), Psychotic Disorder (DC) Activity/Diet/Wound Care/Special Instructions: Activity and diet as tolerated. Avoid the use of street drugs and alcohol. Take all medications as prescribed. When you are in need of refills on your medications please contact your medical provider and/or outpatient psychiatrist to have this done. Please go to scheduled outpatient appointment for aftercare treatment. If symptoms return or become worse, call the crisis line at and/or go to the nearest emergency room for evaluation Discharge Disposition: DC/TRANSFER COURT/LAW
== END 2021-12-18 14:30 | DRG 885 ==
LOC: EC 08:41 → 3MHU 16:04
PROVIDERS: ADMIT Psychiatry & Neurology Psychiatry; ATTEND Psychiatry & Neurology Psychiatry
DX: F25.0 Schizoaffective disorder, bipolar type (principal); F17.290 Nicotine dependence, other tobacco product, uncomplicated; F12.20 Cannabis dependence, uncomplicated; F15.10 Other stimulant abuse, uncomplicated; F41.9 Anxiety disorder, unspecified; F94.0 Selective mutism; S09.90XA Unspecified injury of head, initial encounter; Z56.0 Unemployment, unspecified; Z82.5 Family history of asthma and other chronic lower respiratory diseases; Z91.51 Personal history of suicidal behavior; Z28.310 Unvaccinated for COVID-19; Z20.822 Contact with and (suspected) exposure to COVID-19; Z98.890 Other specified postprocedural states; Z71.51 Drug abuse counseling and surveillance of drug abuser
CPT/HCPCS: 36415; 70450; 80053; 80306; 81001; 81025; 82075; 84443; 85025; 87086; 87635; 99285

== ENCOUNTER 2023-12-07 12:13 | Emergency (ER) | payer MEDICAID, OTHER ==
--- NOTE | 2023-12-07 13:08 | ED ---
Psych HPI - General Source: patient, RN notes reviewed Mode of arrival: ambulatory Limitations: no limitations - History of Present Illness MD Complaint: suicidal ideation <Luci Hill - Last Filed: 12/07/23 16:45> <Gertrudis Harrison - Last Filed: 12/07/23 20:28> - General Chief Complaint: Psychiatric Symptoms Stated Complaint: Suicidal Time Seen by Provider: 12/07/23 12:59 - History of Present Illness Initial Comments: This is a 23 year old female who presents to the emergency department for psychiatric evaluation. Patient reports auditory hallucinations over the last week. States that these voices are endorsing suicidal thoughts. She does not have a specific plan associated with this. This has happened to her in the past, and she states that this typically occurs when nobody is listening to her. Currently takes Lexapro. She used to be on Abilify, but states that this was discontinued for unknown reasons. Receives her medication from her primary care provider. Does not follow with psychiatry. States that she does have a counselor she has been trying to get in contact with, however they have not contacted her back. Denies any visual hallucinations associated with this. (Luci Hill) - Related Data Home Medications Medication Instructions Recorded Confirmed Lexapro (Unknown) 1 tab PO DAILY 12/07/23 12/07/23 Allergies Allergy/AdvReac Type Severity Reaction Status Date / Time No Known Allergies Allergy Verified 12/07/23 17:09 Review of Systems ROS Other: All systems not noted in ROS Statement are negative. <Luci Hill - Last Filed: 12/07/23 16:45> ROS Other: All systems not noted in ROS Statement are negative. <Gertrudis Harrison - Last Filed: 12/07/23 20:28> ROS Statement: Those systems with pertinent positive or pertinent negative responses have been documented in the HPI. Past Medical History Past Medical History: No Reported History Additional Past Medical History / Comment(s): Proteinuria History of Any Multi-Drug Resistant Organisms: None Reported Past Surgical History: No Surgical Hx Reported Additional Past Surgical History / Comment(s): [place] Teeth Removed Past Anesthesia/Blood Transfusion Reactions: No Reported Reaction Past Psychological History: Anxiety, Depression Smoking Status: Vaper Past Alcohol Use History: Occasional Past Drug Use History: None Reported - Past Family History Mother Family Medical History: Asthma Additional Family Medical History / Comment(s): , anoxic encephalopathy family Family Medical History: Unable to Obtain <Luci Hill - Last Filed: 12/07/23 16:45> General Exam Limitations: no limitations General appearance: alert, in no apparent distress Head exam: Present: atraumatic, normocephalic, normal inspection Respiratory exam: Present: normal lung sounds bilaterally. Absent: respiratory distress, wheezes, rales, rhonchi, stridor Cardiovascular Exam: Present: regular rate, normal rhythm, normal heart sounds. Absent: systolic murmur, diastolic murmur, rubs, gallop, clicks Neurological exam: Present: alert, oriented X3, CN II-XII intact Psychiatric exam: Present: normal affect, normal mood Skin exam: Present: warm, dry, intact, normal color. Absent: rash <Luci Hill - Last Filed: 12/07/23 16:45> Course Vital Signs 12/07/23 12:52 Temperature 97.9 F Pulse Rate 81 Respiratory 18 Rate Blood Pressure 114/78 O2 Sat by Pulse 98 Oximetry Medical Decision Making <Luci Hill - Last Filed: 12/07/23 16:45> <Gertrudis Harrison - Last Filed: 12/07/23 20:28> - Medical Decision Making This is a 23 year old female who presents to the emergency department for psychiatric evaluation. Was pt. sent in by a medical professional or institution? @ -No Did you speak to anyone other than the patient for history? @ -No Did you review nursing and triage notes? @ -Yes, and I agree, it is accurate with regards to the patient's symptoms. Were old charts reviewed? @ -No Differential Diagnosis? @ -Differential Mental Health: Depression, anxiety, bipolar, psychosis, schizophrenia, borderline personality, situational depression, adjustment disorder, behavioral disorder, brain tumor, malingering, substance abuse, encephalopathy, medication reaction, dementia, hypothyroidism, degenerative neurologic disorder, lupus.... This is not meant to be all-inclusive list EKG interpreted by me (3pts min.)? @ -Not obtained X-rays interpreted by me (1pt min.)? @ -Not obtained CT interpreted by me (1pt min.)? @ -Not obtained U/S interpreted by me (1pt. min.)? @ -Not obtained What testing was considered but not performed? (CT, X-rays, U/S, labs)? Why? @ -None What meds were considered but not given? Why? @ -None Did you discuss the management of the patient with other professionals? @ -No Did you reconcile home meds? @ -No Was smoking cessation discussed for >3mins.? @ -I discussed smoking cessation for greater than 3 minutes. The risk of smoking were discussed with the patient including but not limited to risks of cancer, stroke, coronary artery disease and COPD. Also discussed with patient were multiple methods of quitting smoking. Lastly we discussed the financial cost of smoking. Was critical care preformed (if so, how long)? @ -No Were there social determinants of health that impacted care today? How? (Homelessness, low income, unemployed, alcoholism, drug addiction, transportation, low edu. Level, literacy, decrease access to med. care, residential, rehab)? @ -No Was there de-escalation of care discussed even if they declined? (Discuss DNR or withdrawal of care, Hospice)? @ -No What co-morbidities impacted this encounter? (DM, HTN, Smoking, COPD, CAD, Cancer, CVA, Hep., AIDS, mental health diagnosis, sleep apnea, morbid obesity)? @ -Psychiatric illness Was patient admitted / discharged? @ -Patient had a BAT of 0.00 and was medically cleared for EPS evaluation. Case signed out to Gertrudis Harrison PA-C, at shift completion pending EPS evaluation. (Luci Hill) Patient was signed out to me at shift change. EPS evaluation was completed. EPS verbalized they feel comfortable to send the patient home with a safety plan at this time. Patient does not currently meet criteria for admission or petition for admission. I discussed with patient, and she feels comfortable returning home with a safety plan at this time. Patient's UA negative for signs of infection or . UA tox positive for amphetamines, methamphetamines, marijuana. (Gertrudis Harrison) - Lab Data Lab Results 12/07/23 12/07/23 Range/Units 12:59 19:43 Urine Color Yellow Urine Appearance Clear (Clear) Urine pH 6.5 (5.0-8.0) Ur Specific [place] 1.028 (1.001-1.035) Urine Protein Trace H (Negative) Urine Glucose (UA) Negative (Negative) Urine Ketones Negative (Negative) Urine Blood Moderate H (Negative) Urine Nitrite Negative (Negative) Urine Bilirubin Negative (Negative) Urine Urobilinogen 2.0 (<2.0) mg/dL Ur Leukocyte Esterase Trace H (Negative) Urine RBC 2 (0-5) /hpf Urine WBC 2 (0-5) /hpf Ur Squamous Epith Cells 6 H (0-4) /hpf Urine Mucus Rare H (None) /hpf Urine HCG, Qual Not Detected (Not Detectd) Urine Opiates Screen Not Detected (NotDetected) Ur Oxycodone Screen Not Detected (NotDetected) Urine Methadone Screen Not Detected (NotDetected) Ur Barbiturates Screen Not Detected (NotDetected) U Tricyclic Antidepress Not Detected (NotDetected) Ur Phencyclidine Scrn Not Detected (NotDetected) Ur Amphetamines Screen Detected H (NotDetected) U Methamphetamines Scrn Detected H (NotDetected) U Benzodiazepines Scrn Not Detected (NotDetected) Urine Cocaine Screen Not Detected (NotDetected) U Marijuana (THC) Screen Detected H (NotDetected) Disposition <Luci Hill - Last Filed: 12/07/23 16:45> Is patient prescribed a controlled substance at d/c from ED?: No Time of Disposition: 20:05 <Gertrudis Harrison - Last Filed: 12/07/23 20:28> Clinical Impression: Nicotine dependence, Suicidal behavior with attempted self-injury Narrative: Please return to the Emergency Department if symptoms worsen or any other concerns. continue at home safety plan as determined with behavioral health, follow-up with psychiatrist. (Gertrudis Harrison) Disposition: HOME SELF-CARE Condition: Good Referrals: Nonstaff,Physician [Primary Care Provider] - 1-2 days
[2023-12-07 13:10] VITALS: TEMP 97.9
[2023-12-07 19:48] LABS: Appearance,Urine Clear (Clear); Bilirubin,Urine Negative (Negative); Blood,Urine Moderate (Negative); Color,Urine Yellow; Glucose,Urine (UA) Negative (Negative); Ketones,Urine Negative (Negative); Leukocyte Esterase,Urine Trace (Negative); Mucus,Urine Rare /hpf; Nitrite,Urine Negative (Negative); PH, Urine 6.5 (5.0-8.0); Protein,Urine Trace (Negative); RBC,Urine 2 /hpf (0-5); Specific Gravity,Urine 1.028 (1.001-1.035); Squamous Epithelial Cell,Urine 6 /hpf (0-4); WBC,Urine 2 /hpf (0-5)
[2023-12-07 20:08] LABS: Amphetamine Screen,Urine Detected (NotDetected); Barbiturate Screen,Urine Not Detected (NotDetected); Benzodiazepines Screen,Urine Not Detected (NotDetected); Cocaine Screen,Urine Not Detected (NotDetected); Methadone Screen, Urine Not Detected (NotDetected); Opiate Screen,Urine Not Detected (NotDetected); Oxycodone Screen, Urine Not Detected (NotDetected); Phencyclidine Screen,Urine Not Detected (NotDetected); Tricyclic Antidepressant,Urine Not Detected (NotDetected); Urn Cannabinoid Scrn Detected (NotDetected)
[2023-12-07 20:35] VITALS: BP 136/73; PULSE 71; RESP 16
== END 2023-12-07 20:28 | disposition home or self-care (01) ==
LOC: EC 12:13
DX: R45.851 Suicidal ideations (principal); F17.290 Nicotine dependence, other tobacco product, uncomplicated
CPT/HCPCS: 80306; 81001; 81025; 82075; 99285; 99406

== ENCOUNTER 2025-01-06 17:25 | Inpatient (IN) | payer MEDICAID, OTHER ==
--- NOTE | 2025-01-06 17:35 | ED ---
Psych HPI - General Chief Complaint: Psychiatric Symptoms Stated Complaint: Petition Time Seen by Provider: 01/06/25 17:34 Source: patient, police, RN notes reviewed, old records reviewed Mode of arrival: ambulatory - History of Present Illness Initial Comments: This is a 24-year-old female to the ER for acute psychosis admits to using meth today. Patient presents for psychiatric evaluation MD Complaint: altered mental status Associated Psychiatric Symptoms: racing thoughts, auditory hallucinations, visual hallucinations, delusions Quality: constant, getting worse Improves With: none Context: recent drug abuse Associated Symptoms: denies other symptoms Treatments Prior to Arrival: placed on mental health hold If Self Harm: admits thoughts of self harm - Related Data Previous Rx's Medication Instructions Recorded ARIPiprazole [Abilify] 10 mg PO DAILY 30 Days #30 tab 01/12/25 Escitalopram [Lexapro] 20 mg PO DAILY 30 Days #30 tab 01/12/25 Melatonin 10 mg PO HS 30 Days #60 tab 01/12/25 Nicotine 14Mg/24Hr Patch [Habitrol] 1 patch TRANSDERM DAILY 14 Days 01/12/25 #14 patch Nicotine Gum (Polacrilex) 2 mg BUCCAL Q4HR PRN 30 Days #180 01/12/25 [Nicorette] pieceofgum busPIRone HCl [Buspar] 10 mg PO BID 30 Days #60 tab 01/12/25 Allergies Allergy/AdvReac Type Severity Reaction Status Date / Time No Known Allergies Allergy Verified 01/06/25 17:31 Review of Systems ROS Statement: Those systems with pertinent positive or pertinent negative responses have been documented in the HPI. ROS Other: All systems not noted in ROS Statement are negative. Past Medical History Past Medical History: No Reported History Additional Past Medical History / Comment(s): Proteinuria History of Any Multi-Drug Resistant Organisms: None Reported Past Surgical History: No Surgical Hx Reported Additional Past Surgical History / Comment(s): [place] Teeth Removed Past Anesthesia/Blood Transfusion Reactions: No Reported Reaction Past Psychological History: Anxiety, Depression Smoking Status: Vaper Past Alcohol Use History: Occasional Past Drug Use History: None Reported - Past Family History Mother Family Medical History: Asthma Additional Family Medical History / Comment(s): , anoxic encephalopathy family Family Medical History: Unable to Obtain General Exam Limitations: no limitations General appearance: alert, in no apparent distress Head exam: Present: atraumatic, normocephalic, normal inspection Eye exam: Present: normal appearance, PERRL, EOMI. Absent: scleral icterus, conjunctival injection, periorbital swelling ENT exam: Present: normal exam, mucous membranes moist Neck exam: Present: normal inspection. Absent: tenderness, meningismus, lymphadenopathy Respiratory exam: Present: normal lung sounds bilaterally. Absent: respiratory distress, wheezes, rales, rhonchi, stridor Cardiovascular Exam: Present: regular rate, normal rhythm, normal heart sounds. Absent: systolic murmur, diastolic murmur, rubs, gallop, clicks GI/Abdominal exam: Present: soft, normal bowel sounds. Absent: distended, tenderness, guarding, rebound, rigid Extremities exam: Present: normal inspection, full ROM, normal capillary refill. Absent: tenderness, pedal edema, joint swelling, calf tenderness Back exam: Present: normal inspection Neurological exam: Present: alert, oriented X3, CN II-XII intact Psychiatric exam: Present: normal affect, normal mood Skin exam: Present: warm, dry, intact, normal color. Absent: rash Course Vital Signs 01/06/25 01/06/25 17:28 22:11 Temperature 99.0 F 98.2 F Pulse Rate 62 98 Respiratory 19 16 Rate Blood Pressure 133/85 O2 Sat by Pulse 100 97 Oximetry - Reevaluation(s) Reevaluation #1: 01/06/25 19:54 Medical records reviewed Reevaluation #2: 01/06/25 19:55 Patient's symptoms are persistent Reevaluation #3: 01/06/25 19:55 Patient informed of results and questions answered Reevaluation #4: Was pt. sent in by a medical professional or institution (, PA, LOGISTICS ASSOCIATE, urgent care, hospital, or senior care...) When possible be specific @ -no Did you speak to anyone other than the patient for history (EMS, parent, family, police, friend...)? What history was obtained from this source @ -no Did you review nursing and triage notes (agree or disagree)? Why? @ -agree Are old charts reviewed (outside hosp., previous admission, EMS record, old EKG, old radiological studies, urgent care reports/EKG's, senior care records)? Report findings @ -yes Differential Diagnosis (chest pain, altered mental status, abdominal pain women, abdominal pain men, vaginal bleeding, weakness, fever, dyspnea, syncope, headache, dizziness, GI bleed, back pain, seizure, CVA, palpatations, mental health, musculoskeletal)? @ -prior EKG interpreted by me (3pts min.). @ -no X-rays interpreted by me (1pt min.). @ -no CT interpreted by me (1pt min.). @ -no U/S interpreted by me (1pt. min.). @ -no What testing was considered but not performed or refused? (CT, X-rays, U/S, labs)? Why? @ -none What meds were considered but not given or refused? Why? @ -none Did you discuss the management of the patient with other professionals (professionals i.e. , PA, LOGISTICS ASSOCIATE, lab, RT, psych nurse, director social, quality head, teacher, humane officer, vocational case manager)? Give summary @ -no Was smoking cessation discussed for >3mins.? @ -no Was critical care preformed (if so, how long)? @ -no Were there social determinants of health that impacted care today? How? (Homelessness, low income, unemployed, alcoholism, drug addiction, transportation, low edu. Level, literacy, decrease access to med. care, retirement, rehab)? @ -none Was there de-escalation of care discussed even if they declined (Discuss DNR or withdrawal of care, Hospice)? DNR status @ -no What co-morbidities impacted this encounter? (DM, HTN, Smoking, COPD, CAD, Cancer, CVA, ARF, Chemo, Hep., AIDS, mental health diagnosis, sleep apnea, morbid obesity)? @ -none Was patient admitted / discharged? Hospital course, mention meds given and route, prescriptions, significant lab abnormalities, going to OR and other pertinent info. @ - 24 female to be admitted for acute psychosis, methamphetamine use Admitted with transfer for inpatient psychiatric evaluation Undiagnosed new problem with uncertain prognosis? @ -no Drug Therapy requiring intensive monitoring for toxicity (Heparin, Nitro, In sulin, Cardizem)? @ -no Were any procedures done? @ -no Diagnosis/symptom? @ -Acute psychosis Acute, or Chronic, or Acute on Chronic? @ -Acute Uncomplicated (without systemic symptoms) or Complicated (systemic symptoms)? @ -Complicated Side effects of treatment? @ -no Exacerbation, Progression, or Severe Exacerbation? @ -exacerbation Poses a threat to life or bodily function? How? (Chest pain, [place], AR, pneumonia, PE, COPD, DKA, ARF, appy, cholecystitis, CVA, Diverticulitis, Homicidal, Maday cidal, threat to staff... and all critical care pts) @ -no Reevaluation #5: 01/06/25 19:55 Differential Mental Health Depression, anxiety, bipolar, psychosis, schizophrenia, borderline personality, situational depression, adjustment disorder, behavioral disorder, brain tumor, malingering, substance abuse, encephalopathy, medication reaction, dementia, hypothyroidism, degenerative neurologic disorder, lupus.... This is not meant to be all-inclusive list Medical Decision Making - Medical Decision Making 24 female to be admitted for acute psychosis, methamphetamine use - Lab Data Result diagrams: 01/07/25 10:16 01/07/25 10:16 Lab Results 01/06/25 Range/Units 19:40 SARS-CoV-2 (PCR) Not Detected (Not Detectd) Disposition Clinical Impression: Schizoaffective disorder, bipolar type, Methamphetamine use disorder, moderate, Amphetamine and psychostimulant-induced mood disorder, Personality disorder, unspecified Disposition: TRANSFER TO PSYCH HOSP/UNIT Condition: Stable Is patient prescribed a controlled substance at d/c from ED?: No
[2025-01-06] MEDS ORDERED: IBUPROFEN 600 MG TAB PO PRN (21:45)
[2025-01-06] MEDS ORDERED: MAG HYDROX/AL HYDROX/SIMETH 355 ML BOTTLE PO PRN (21:45)
[2025-01-06] MEDS ORDERED: MAGNESIUM HYDROXIDE 2,400 MG/30 ML CUP PO PRN (21:45)
[2025-01-06] MEDS ORDERED: LORazepam 1 MG/0.5 ML VIAL IM PRN (21:49)
[2025-01-06] MEDS ORDERED: haloperidoL 5 MG TAB PO PRN (21:49)
[2025-01-06] MEDS ORDERED: HALOPERIDOL LACTATE 5 MG/ML 1 ML VIAL IM PRN (21:49)
[2025-01-06] MEDS ORDERED: LORazepam 1 MG TAB PO PRN (21:49)
[2025-01-06] MEDS ORDERED: LORazepam 2 MG/ML INJ IM PRN (21:57)
[2025-01-07] MEDS: ACETAMINOPHEN TAB 325 MG TAB PO PRN (08:13)
[2025-01-07] MEDS: ARIPiprazole 5 MG TAB PO SCH (08:13)
[2025-01-07] MEDS: ESCITALOPRAM 10 MG TAB PO SCH (08:13)
[2025-01-07] MEDS: NICOTINE 14MG/24HR PATCH TRANSDERM SCH (08:13)
[2025-01-07] MEDS: NICOTINE GUM (POLACRILEX) 2 MG GUM BUCCAL PRN (10:29)
[2025-01-07 10:41] LABS: Basophils # (A) 0.05 10*3/uL (0.00-0.10); Basophils % (A) 0.7 %; Eosinophils # (A) 0.16 10*3/uL (0.04-0.35); Eosinophils % (A) 2.2 %; HCT 39.9 % (37.2-46.3); HGB 14.3 g/dL (12.0-15.0); Lymphocytes # (A) 1.47 10*3/uL (0.90-5.00); Lymphocytes % (A) 20.2 %; MCH 30.4 pg (27.0-32.0); MCHC 35.8 g/dL (32.0-37.0); MCV 84.7 fL (80.0-97.0); Mean Platelet Volume 8.1 fL (9.5-12.2); Monocytes # (A) 0.65 10*3/uL (0.20-1.00); Monocytes % (A) 8.9 %; Neutrophils # (A) 4.92 10*3/uL (1.80-7.70); Neutrophils % (A) 67.7 %; Platelet Count 312 10*3/uL (140-440); RBC 4.71 10*6/uL (4.10-5.20); RDW 14.2 % (11.5-14.5); WBC 7.27 10*3/uL (4.50-10.00)
[2025-01-07 11:03] LABS: ALT 23 U/L (4-34); AST 19 U/L (14-36); African American GFR (CKD) >90 (>60 ml/min/1.73 sqM); Albumin 4.7 g/dL (3.5-5.0); Alkaline Phosphatase 74 U/L (38-126); Anion Gap 12 mmol/L; Blood Urea Nitrogen 14 mg/dL (7-17); Calcium 9.8 mg/dL (8.4-10.2); Carbon Dioxide 26 mmol/L (22-30); Chloride 100 mmol/L (98-107); Glucose 80 mg/dL (74-99); Non-African American GFR(CKD) >90 (>60 ml/min/1.73 sqM); Potassium 3.8 mmol/L (3.5-5.1); Sodium 138 mmol/L (137-145); Total Bilirubin 2.6 mg/dL (0.2-1.3); Total Protein 7.8 g/dL (6.3-8.2)
--- NOTE | 2025-01-07 13:49 | P.HP ---
Psychiatric H&P - . H&P Date: 01/07/25 History & Physical: Allergies Allergy/AdvReac Type Severity Reaction Status Date / Time No Known Allergies Allergy Verified 01/06/25 17:31 Vital Signs Temp 97.7 F 01/07/25 09:00 Pulse 104 H 01/07/25 09:00 Resp 20 01/07/25 09:00 BP 106/77 01/07/25 09:00 Pulse Ox 97 01/07/25 09:00 FiO2 Intake & Output 01/06/25 01/07/25 01/07/25 18:59 06:59 18:59 Weight 72.575 kg 76.2 kg Laboratory Last Values WBC 7.27 10*3/uL (4.50-10.00) 01/07/25 10:16 RBC 4.71 10*6/uL (4.10-5.20) 01/07/25 10:16 Hgb 14.3 g/dL (12.0-15.0) 01/07/25 10:16 Hct 39.9 % (37.2-46.3) 01/07/25 10:16 MCV 84.7 fL (80.0-97.0) 01/07/25 10:16 MCH 30.4 pg (27.0-32.0) 01/07/25 10:16 MCHC 35.8 g/dL (32.0-37.0) 01/07/25 10:16 Plt Count 312 10*3/uL (140-440) 01/07/25 10:16 MPV 8.1 fL (9.5-12.2) L 01/07/25 10:16 Immature Gran % (Auto) 0.3 % 01/07/25 10:16 Neutrophils % 67.7 % 01/07/25 10:16 Lymphocytes % 20.2 % 01/07/25 10:16 Monocytes % 8.9 % 01/07/25 10:16 Eosinophils % 2.2 % 01/07/25 10:16 Basophils % 0.7 % 01/07/25 10:16 Immature Gran # 0.02 10*3/uL (0.00-0.04) 01/07/25 10:16 Neutrophils # 4.92 10*3/uL (1.80-7.70) 01/07/25 10:16 Lymphocytes # 1.47 10*3/uL (0.90-5.00) 01/07/25 10:16 Monocytes # 0.65 10*3/uL (0.20-1.00) 01/07/25 10:16 Eosinophils # 0.16 10*3/uL (0.04-0.35) 01/07/25 10:16 Basophils # 0.05 10*3/uL (0.00-0.10) 01/07/25 10:16 Sodium 138 mmol/L (137-145) 01/07/25 10:16 Potassium 3.8 mmol/L (3.5-5.1) 01/07/25 10:16 Chloride 100 mmol/L (98-107) 01/07/25 10:16 Carbon Dioxide 26 mmol/L (22-30) 01/07/25 10:16 Anion Gap 12 mmol/L 01/07/25 10:16 BUN 14 mg/dL (7-17) 01/07/25 10:16 Creatinine 0.69 mg/dL (0.52-1.04) 01/07/25 10:16 Est GFR (CKD-EPI)AfAm >90 (>60 ml/min/1.73 sqM) 01/07/25 10:16 Est GFR (CKD-EPI)NonAf >90 (>60 ml/min/1.73 sqM) 01/07/25 10:16 Glucose 80 mg/dL (74-99) 01/07/25 10:[address] Glu mg/dL 82 mg/dL 01/07/25 10:16 Hemoglobin A1c 4.5 % (<=6.0) 01/07/25 10:16 Calcium 9.8 mg/dL (8.4-10.2) 01/07/25 10:16 Total Bilirubin 2.6 mg/dL (0.2-1.3) H 01/07/25 10:16 AST 19 U/L (14-36) 01/07/25 10:16 ALT 23 U/L (4-34) 01/07/25 10:16 Alkaline Phosphatase 74 U/L (38-126) 01/07/25 10:16 Total Protein 7.8 g/dL (6.3-8.2) 01/07/25 10:16 Albumin 4.7 g/dL (3.5-5.0) 01/07/25 10:16 TSH 0.914 mIU/L (0.465-4.680) 01/07/25 10:16 SARS-CoV-2 (PCR) Not Detected (Not Detectd) 01/06/25 19:40 01/07/25 13:32 IDENTIFYING DATA: Patient is a 24-year-old female, living with aunt, unemployed CHIEF COMPLAINT: Psychosis HPI: Patient presented to the hospital with psychosis and meth use. 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 Petition states, "aubree becomes delusional stating people are talking in her head, claiming family members have distorted her face, associates smells with past memories that did not take place, claiming oeioke are out to get her. Others morphing into differnt people. Tried to jump out of car on free[address] [place] 70[place] when sister raúl was taking her to jail, On Wednesday same situation. Claims her Aunt Soraida is trying to morph into her sister Jeremías. Claims I am trying to morph into her sister Raúl...". Upon assessment pt is hyperverbal, tangential, and has flight of ideas. Pt is harder to redirect and focos on questions. Pt admits to smoking methamphetamines yesterday, Pt does have a hx of meth use. Pt is making bizarre statements, "I think I took my own life and still living in this world...is it true that we are just still on the psych unit...my cousin acted to be me and turn into me...they all distorted my face". Pt admits to SI daily and current. Pt would not disclose a plan but pt does have a hx of suicide attempts. Pt denies HI. Pt has AH and states, "in my head they tell me they don't love me, they don't even like me". Pt is a current harm to self. Pt is eating two meals daily, not sleeping, and states she normally cares for her basic needs. Pt does mention previous felony charges, hx of aggressive behaviors." Patient seen and evaluated on the unit and was agreeable with speaking to field underwriter in office. She states being here ultimately due to experiencing suicidal ideations with delusional thoughts feeling as though her aunt and cousin were putting these thoughts in her head. She does admit to using meth, last use was 2 days ago and she has been using this substance intermittently for the past 5 years. She agrees with what aunt expressed in the petition, admitting to feeling as though she was morphing into her aunt when laying down, expressing paranoia described as feeling as though her her aunt was messing with her. She states also breaking up with her boyfriend and this is contributing to the suicidal ideations. She has gone to rehab before however is open to more outpatient substance use support than inpatient at this time. She reports sleep difficulties, low energy, anhedonia denying any appetite changes. She does express suicidal ideations however states that they are less intense than yesterday, no plan or intent. Patient denies any homicidal ideations intent or plan. At this time patient denies any auditory or visual hallucinations. Patient denies any flight of ideas racing thoughts and increased in goal directed behavior. Patient admits to using meth, last use 2 days ago, smoking 8 cigarettes/day, smoking 2 joints of cannabis per day, denying any alcohol use. PAST PSYCHIATRIC HISTORY: Patient has a history of schizoaffective disorder, amphetamine use disorder. Patient reports being on Lexapro 10 mg daily, Abilify 5 mg daily. She reports 3-4 previous inpatient hospitalizations most recent being at this facility back in November 2016. Patient denies any psychiatric outpatient follow-up. She reports 1 suicide attempt at the age of 19. PMH: as per ER note ALLERGIES: as per EMR SUBSTANCE USE HISTORY: As per HPI FAMILY PSYCHIATRIC/SUBSTANCE USE HISTORY: She states her aunt abuses alcohol that her mother has depression. SOCIAL HISTORY: Patient is single and has no kids. She lives with aunt, completed high school and is unemployed. Aunt reportedly does not wish for patient to return home with her and feels as though patient needs a court appointed guardian. MENTAL STATUS EXAM: General Appearance: Patient appears to be stated age is alert, directable, and attempts to cooperate. Patient appears to have poor hygiene and grooming. Behavior: Patient is seated without any agitated behavior. Speech: Patient's speech is fluent and nonpressured. Mood/Affect: Patient reports their mood is depressed, affect is congruent and constricted. Suicidality/Homicidality: Patient denies having any homicidal ideation intent or plan. She reports suicidal ideations, no intent or plan Perceptions: Patient denies any visual hallucinations and denies any auditory hallucinations Though content/process: There is no evidence of any delusional thought content and thought process is linear and goal-directed. Memory and concentration: AOX3, grossly intact for the purposes of this session. Can spell "WORLD" backwards Judgment and insight: Poor STRENGTHS/WEAKNESSES: strength is that patient is resilient. Weakness is that patient has poor judgment, uses meth and is impulsive INTELLECT: Average IMPRESSIONS: Psychosis, unspecified Rule out substance-induced psychotic disorder versus schizoaffective disorder, bipolar type Methamphetamine abuse Nicotine dependence Cannabis use disorder PLAN: -Patient is admitted under voluntary status to MHU for stabilization of psychiatric symptoms and safety. Patient has signed adult voluntary form and and is placed in patient's chart. -Medications : Increase Lexapro to 15 mg daily for depression, increase Abilify to 10 mg daily for psychosis, start melatonin 10 mg at bedtime for insomnia -Ativan and Haldol PRN for agitation/aggression -Patient was counselled on substance abuse and desired to cut back on use-Will offer patient subtance use rehab however she declined at this time -Patient was informed of the risks, benefits and side effects of the medication and patient verbally consented to taking the medications. Patient signed med consent form and was placed in chart. Patient offered and accepted patient education sheet for psychotropic medications. -Internal Medicine consult to perform medical evaluation and physical. -NRT -nicotine patch -SW on board for discharge planning. Encourage patient to participate in groups to work on coping skills.
[2025-01-07] MEDS: MELATONIN 5 MG TABLET PO SCH (21:00)
[2025-01-08] MEDS: ESCITALOPRAM 5 MG TAB PO SCH (09:08)
[2025-01-08] MEDS: ARIPiprazole 10 MG TAB PO SCH (09:08)
--- NOTE | 2025-01-08 19:01 | P.PN ---
Progress Note - Text Progress Note Date: 01/08/25 Interval history: Patient was seen awake but resting in bed. She was directable and agreeable to speak with check writer. She reports feeling "better" today. At this time patient denies any suicidal or homicidal ideation, intent or plan. Denies any auditory or visual hallucinations. Patient denies any side effects from the medications and has been compliant with meds. She inquires about discharge. Mental status exam: General Appearance: Patient appears to be stated age, well-nourished adult fem regan laying in bed with covers on Behavior: No agitated behavior. Patient is calm and directable. Speech: Patient's speech is fluent and non-pressured. Mood/Affect: Mood is improving mildly, affect is congruent and constricted. Suicidality/Homicidality: Patient denies having any suicidal or homicidal ideation intent or plan. Perceptions: Patient denies any auditory or visual hallucinations. Though content/process: There is no evidence of any delusional thought content and thought process is linear and goal-directed. Memory and concentration: AOX3, grossly intact for the purposes of this session Judgment and insight: improving mildly Assessment/Plan: Continue with current diagnosis. Patient continues to meet criteria for inpatient psychiatric admission for symptom stabilization and safety. Patient will be maintained on current psychotropic medication regimen. Monitor for medication compliance and for any psychotropic medication side effects. Will continue to monitor ongoing response to treatment. Encouraged participation in milieu.
--- NOTE | 2025-01-09 11:37 | P.PN ---
Progress Note - Text Progress Note Date: 01/09/25 Interval history: Patient was seen today for psychiatric follow-up, she was wandering the [facility]. He was fairly insistent on speaking with underwriter solicitation director today. Claims that she is doing a bit better today, that she is still having issues with anxiety and her mood while on the unit. Claims that she is interacting more with others trying to go to some groups. She did appear to have mild improvement in her insight and we spoke a bit about her methamphetamine use and how it is contributing to her mental illness, claims that she feels "disgusting" when she uses it and claims that she does not need rehab however would like to outpatient treatment at [facility]. Claims that she was hearing voices while she was on it, claims that they have calmed down at this point. She was agreeable to try an increased dose of Lexapro today. Claims that she is sleeping fairly at nighttime denying any issues with appetite, denies any side effects at this time. Denies any auditory hallucinations denying any suicidal or homicidal ideations intent or plan. MENTAL STATUS EXAM: General Appearance: Patient appears to be stated age is alert, directable, and attempts to cooperate. Patient appears to have mildly improving hygiene and grooming. Behavior: Patient is seated without any agitated behavior. A bit more cooperative today. Speech: Patient's speech is fluent and nonpressured. Mood/Affect: Patient reports their mood is depressed/anxious, improving mildly, affect is congruent and constricted. Suicidality/Homicidality: Patient denies having any homicidal ideation intent or plan. Denies any suicidal ideations, no intent or plan Perceptions: Patient denies any visual hallucinations and denies any auditory hallucinations Though content/process: There is no evidence of any delusional thought content and thought process is linear and goal-directed. Focused on discharge, minimizing drug use, improving Memory and concentration: AOX3, grossly intact for the purposes of this session Judgment and insight: Poor, improving mildly IMPRESSIONS: Psychosis, unspecified, rule out substance-induced psychotic disorder versus schizoaffective disorder, bipolar type Methamphetamine abuse Nicotine dependence Cannabis use disorder PLAN: -Patient is admitted under voluntary status to MHU for stabilization of psychiatric symptoms and safety. Patient has signed adult voluntary form and and is placed in patient's chart. -Medications : Increase Lexapro 20 mg daily for depression/anxiety, Abilify 10 mg daily for psychosis, melatonin 10 mg at bedtime for insomnia -Ativan and Haldol PRN for agitation/aggression -NRT -nicotine patch -SW on board for discharge planning. Encourage patient to participate in groups to work on coping skills. Patient is refusing rehab at this time and is more interested in outpatient substance use treatment. Likely discharge Wednesday if patient is improving psychiatrically.
[2025-01-10] MEDS: ESCITALOPRAM 20 MG TAB PO SCH (09:10)
--- NOTE | 2025-01-10 11:03 | P.PN ---
Progress Note - Text Progress Note Date: 01/10/25 Interval history: Patient was seen today for psychiatric follow-up. Patient was participating in group. She claims that she is doing a bit better today. claims that her mood and anxiety been improving since yesterday. She claims that she is still unsure whether she can return back to her aunts house or has to go to her father's house in [place]. We spoke more about the option of rehab and states that she would be open to call the rehab in [place] with help today. Has been going to groups, claims that she has been doing well. We spoke about option of long- acting injections and she states that she does not want this. Claims that she is sleeping fairly at nighttime denying any issues with appetite, denies any side effects at this time. Denies any auditory hallucinations denying any suicidal or homicidal ideations intent or plan. MENTAL STATUS EXAM: General Appearance: Patient appears to be stated age is alert, directable, and attempts to cooperate. Patient appears to have mildly improving hygiene and grooming. Behavior: Patient is seated without any agitated behavior. A bit more cooperative today. Improving mildly Speech: Patient's speech is fluent and nonpressured. Mood/Affect: Patient reports their mood is improving mildly, affect is congruent and constricted. Improving mildly Suicidality/Homicidality: Patient denies having any homicidal ideation intent or plan. Denies any suicidal ideations, no intent or plan Perceptions: Patient denies any visual hallucinations and denies any auditory hallucinations Though content/process: There is no evidence of any delusional thought content and thought process is linear and goal-directed. Focused on discharge, mini mizing drug use, improving Memory and concentration: AOX3, grossly intact for the purposes of this session Judgment and insight: Poor, improving mildly IMPRESSIONS: Psychosis, unspecified, rule out substance-induced psychotic disorder versus schizoaffective disorder, bipolar type Methamphetamine abuse Nicotine dependence Cannabis use disorder PLAN: -Patient is admitted under voluntary status to MHU for stabilization of psychiatric symptoms and safety. Patient has signed adult voluntary form and and is placed in patient's chart. -Medications : Lexapro 20 mg daily for depression/anxiety, Abilify 10 mg daily for psychosis, melatonin 10 mg at bedtime for insomnia -Ativan and Haldol PRN for agitation/aggression -NRT - nicotine patch -SW on board for discharge planning. Encourage patient to participate in groups to work on coping skills. Patient is is now open to calling rehab in [place]. If she is not willing to go to rehab or does not qualify then she will either need to go to her aunts or her father's house. Likely discharge Wednesday if patient is improving psychiatrically.
--- NOTE | 2025-01-11 00:31 | P.MDCNMH ---
History of Present Illness H&P Date: 01/11/25 24-year-old female denies any significant past medical history admitted to the mental health unit for evaluation Patient denies any medical concerns at this time she denies any fever, chills, cough, sore throat, chest pain , trouble breathing , nausea , vomiting, abd pain , changes in urinary or bowel habits. she denies tobacco smoking, , and alcohol, she admits to some marijuana review of systems Pertinent positives as noted in HPI. All other systems were reviewed and are negative on exam Constitutional: No acute distress, conversant, pleasant Eyes: Anicteric sclerae, moist conjunctiva, Pupils equal round reactive to light Lungs: Clear to auscultation Clear to percussion Normal respiratory effort, no accessory muscle use Cardiovascular: Heart regular in rate and rhythm, No murmurs, gallops, or rubs No peripheral edema Abdominal: Soft Nontender, no guarding, rebound or rigidity Abdomen moving with respiration Normoactive bowel sounds Extremities: No digital cyanosis No clubbing Pedal pulses intact and symmetrical Radial pulses intact and symmetrical No calf tenderness Psychiatric: Alert and oriented to person, place and time Neuro Muscles Strength 5/5 in all 4 extremities Sensation to light touch grossly present throughout Cranial nerves II-XII grossly intact Past Medical History Past Medical History: No Reported History Additional Past Medical History / Comment(s): Proteinuria History of Any Multi-Drug Resistant Organisms: None Reported Past Surgical History: No Surgical Hx Reported Additional Past Surgical History / Comment(s): [place] Teeth Removed Past Anesthesia/Blood Transfusion Reactions: No Reported Reaction Smoking Status: Current every day smoker - Past Family History Mother Family Medical History: Asthma Additional Family Medical History / Comment(s): , anoxic encephalopathy family Family Medical History: Unable to Obtain Medications and Allergies Home Medications Medication Instructions Recorded Confirmed Type ARIPiprazole [Abilify] 5 mg PO DAILY 01/08/25 01/08/25 History Escitalopram [Lexapro] 10 mg PO DAILY 01/08/25 01/08/25 History Allergies Allergy/AdvReac Type Severity Reaction Status Date / Time No Known Allergies Allergy Verified 01/06/25 17:31 Physical Exam Vitals: Vital Signs Temp Pulse Resp BP Pulse Ox 01/10/25 21:48 98.4 F 83 18 99/69 99 01/10/25 09:06 97.5 F L 85 16 115/70 98 Cranial Nerve Examination - Cranial Nerves Cranial Nerve II- Optic: Intact Cranial Nerve III- Oculomotor: Intact Cranial Nerve IV- Trochlear: Intact Cranial Nerve V- Trigeminal: Intact Cranial Nerve - Abducens: Intact Cranial Nerve VII- Facial: Intact Cranial Nerve VIII- Auditory: Intact Cranial Nerve IX- Glossopharyngeal: Intact Cranial Nerve X- Vagus: Intact Cranial Nerve XI- Accessory: Intact Cranial Nerve XII- Hypoglossal: Intact Results CBC & Chem 7: 01/07/25 10:16 01/07/25 10:16 Assessment and Plan Assessment: Acute psychosis Management per psych Stable from medical standpoint Blood work reviewed unremarkable Thank you for this consultation
[2025-01-11 10:11] VITALS: RESP 16
--- NOTE | 2025-01-11 13:54 | P.PN ---
Progress Note - Text Progress Note Date: 01/11/25 Interval history: Patient was seen today for psychiatric follow-up. Patient was laying in her bed agreeable to speak track. Claims that she is doing a bit better today with her mood however does claim that she did have some anxiety earlier today. Claims that she is interested in trying a different medication to help with anxiety and opted to try BuSpar today. Claims that she did not want to go to rehab at this time and would rather go to her father's house in [place]. Claims that her fa ther cannot come the explosives truck driver and is requesting a count. States that she has been trying to go to groups participating. Has been eating well showering. Claims that she had difficulty sleeping last night due to leaving her nicotine patch on and had a nightmare. Denies any auditory hallucinations denying any suicidal or homicidal ideations intent or plan. MENTAL STATUS EXAM: General Appearance: Patient appears to be stated age is alert, directable, and attempts to cooperate. Patient appears to have mildly improving hygiene and grooming. Behavior: Patient is seated without any agitated behavior. more cooperative today. Improving mildly Speech: Patient's speech is fluent and nonpressured. Mood/Affect: Patient reports their mood is improving mildly, affect is congruent and Improving mildly Suicidality/Homicidality: Patient denies having any homicidal ideation intent or plan. Denies any suicidal ideations, no intent or plan Perceptions: Patient denies any visual hallucinations and denies any auditory hallucinations Though content/process: There is no evidence of any delusional thought content and thought process is linear and goal-directed. Memory and concentration: AOX3, grossly intact for the purposes of this session Judgment and insight: improving mildly IMPRESSIONS: Psychosis, unspecified, rule out substance-induced psychotic disorder versus schizoaffective disorder, bipolar type Methamphetamine abuse Nicotine dependence Cannabis use disorder PLAN: -Patient is admitted under voluntary status to MHU for stabilization of psychiatric symptoms and safety. Patient has signed adult voluntary form and and is placed in patient's chart. -Medications : Lexapro 20 mg daily for depression/anxiety, Abilify 10 mg daily for psychosis, melatonin 10 mg at bedtime for insomnia. Added BuSpar 10 mg twice daily for anxiety -Ativan and Haldol PRN for agitation/aggression -NRT - nicotine patch -SW on board for discharge planning. Encourage patient to participate in groups to work on coping skills. Patient is now declining rehab. Claims that she is willing to stay with her father upon discharge in [place]. Will work with social professionals and team to figure out a ride. Likely discharge Wednesday if patient is improving psychiatrically.
[2025-01-11] MEDS: busPIRone HCl 10 MG TAB PO SCH (14:01)
--- NOTE | 2025-01-12 08:37 | P.DS ---
Providers Date of admission: 01/06/25 21:32 Expected date of discharge: 01/12/25 Attending physician: Loc Pabon MD Consults: 01/06/25 21:45 Consult Physician Routine Consulting Provider: [facility] Consult Reason/Comments: H&P Do you want consulting provider notified?: Yes Primary care physician: Stated None - Discharge Diagnosis(es) (1) Psychosis Current Visit: Yes Status: Acute Priority: High (2) Methamphetamine abuse Current Visit: Yes Status: Acute Priority: High (3) Nicotine dependence Current Visit: Yes Status: Acute Priority: Low (4) Cannabis use disorder Current Visit: Yes Status: Acute Priority: Medium Hospital Course: Admission HPI: Admission note was completed by Dr. Antony "Patient is a 24-year-old female, living with aunt, unemployed. Patient presented to the hospital with psychosis and meth use. Per EPS, "Pt was brought in on a pickling grader order petition that was completed by her aunt. Petition states, "aubree becomes delusional stating pe ople are talking in her head, claiming family members have distorted her face, associates smells with past memories that did not take place, claiming oeioke are out to get her. Others morphing into differnt people. Tried to jump out of car on free[address] [place] 70mph when sister raúl was taking her to correction, On Wednesday same situation. Claims her Aunt Soraida is trying to morph into her sister Jeremías. Claims I am trying to morph into her sister Raúl...". Upon assessment pt is hyperverbal, tangential, and has flight of ideas. Pt is harder to redirect and focos on questions. Pt admits to smoking methamphetamines yesterday, Pt does have a hx of meth use. Pt is making bizarre statements, "I think I took my own life and still living in this world...is it true that we are just still on the psych unit...my cousin acted to be me and turn into me...they all distorted my face". Pt admits to SI daily and current. Pt would not disclose a plan but pt does have a hx of suicide attempts. Pt denies HI. Pt has AH and states, "in my head they tell me they don't love me, they don't even like me". Pt is a current harm to self. Pt is eating two meals daily, not sleeping, and states she normally cares for her basic needs. Pt does mention previous felony charges, hx of aggressive behaviors." Patient seen and evaluated on the unit and was agreeable with speaking to senior grant writer in office. She states being here ultimately due to experiencing suicidal ideations with delusional thoughts feeling as though her aunt and cousin were putting these thoughts in her head. She does admit to using meth, last use was 2 days ago and she has been using this substance intermittently for the past 5 years. She agrees with what aunt expressed in the petition, admitting to feeling as though she was morphing into her aunt when laying down, expressing paranoia described as feeling as though her her aunt was messing with her. She states also breaking up with her boyfriend and this is contributing to the suicidal ideations. She has gone to rehab before however is open to more outpatient substance use support than inpatient at this time. She reports sleep difficulties, low energy, anhedonia denying any appetite changes. She does express suicidal ideations however states that they are less intense than yesterday, no plan or intent. Patient denies any homicidal ideations intent or plan. At this time patient denies any auditory or visual hallucinations. Patient denies any flight of ideas racing thoughts and increased in goal directed behavior. Patient admits to using meth, last use 2 days ago, smoking 8 cigarettes/day, smoking 2 joints of cannabis per day, denying any alcohol use." Hospital course: Upon admission to the unit patient was directable and agreeable to commence treatment and signed adult voluntary form. Patient was initially depressed, hallucinating, however with time and treatment patient got along well with other patients on the unit and followed unit protocol. Patient was compliant with the medications and denied any side effects throughout hospital course. Patient was started on Abilify increased to dose of 10 mg daily for psychosis/mood stabilization, Lexapro 20 mg daily for mood/anxiety, BuSpar 10 mg twice daily for anxiety, melatonin 10 mg nightly for insomnia. Patient spoke of her stressors and engaged in therapy both group/activity therapy. Patient was also seen by medical team for history and physical exam. Throughout the course of the hospitalization patient gradually improved with regards to mood, anxiety, psychosis, sleep and became more future oriented with improved insight and judgment. On the day of discharge patient denied any suicidal or homicidal ideations intent or plan denied any auditory or visual hallucinations. Patient endorsed wanting to live for their health and family. The patient denied any access to guns or weapons. Patient denied any paranoia and did not endorse any delusions. Patient does have a significant history of substance abuse and was counseled on abstaining from all substances including alcohol and marijuana. Patient was offered however declined inpatient substance-abuse rehab. Patient elected to do outpatient substance use treatment program through their outpatient provider. Patient was also counseled on the medications and need for regular compliance and was encouraged to follow-up with their outpatient [facility] for mental health and also for primary care. Prior to discharge a family meeting will be arranged by neonatal social worker to answer any questions and ensure safety upon discharge incuding making sure that guns/weapons are either removed from the home or locked away. Patient will be discharged to her father's house in [place] today. Mental status exam: General Appearance: Patient appears to be stated age is alert, pleasant, and cooperative. Patient is in no acute distress and has improved hygiene and grooming Behavior: Patient is calmly seated without any agitated behavior. Speech: Patient's speech is fluent and nonpressured. Mood/Affect: Patient reports their mood is "better", affect is congruent and euthymic. Suicidality/Homicidality: Patient denies having any suicidal or homicidal ideation intent or plan. Perceptions: Patient denies any auditory or visual hallucinations. Though content/process: There is no evidence of any delusional thought content and thought process is linear and goal-directed. More future oriented Memory and concentration: AOX3, grossly intact for the purposes of this session. Can spell "WORLD" backwards correctly. Judgment and insight: Chronically poor, however has improved with guarded prognosis Impression: Psychosis unspecified, rule out substance-induced psychotic disorder versus schizoaffective disorder versus bipolar Methamphetamine abuse Cannabis use disorder Nicotine dependence Plan: -Continue with discharge today as patient has improved and stabilized psychiatrically and is not currently an imminent threat to themself and/or ot hers. Patient will remain at chronically elevated risk for harm to self and/or others due to their impulsivity and substance abuse. -Continue medications: Lexapro 20 mg daily for mood/anxiety, Abilify p.o. 10 mg daily for psychosis/mood stabilization, melatonin 10 mg nightly for sleep, BuSpar 10 mg twice daily for anxiety. -Patient was counseled on the need for medication compliance and appropriate follow-up at mental health and also primary care for medical issues. Patient verbalized understanding and agreed. -Social work to arrange for and conduct family meeting to ensure safety upon discharge and answer any questions/concerns. also to ensure safe home environment that guns/weapons are either removed from the home or locked away. Social work also to arrange for patients follow up appointments with [facility] for psychiatric care along with follow up with primary care provider. -Patient counseled on abstaining from recreational drugs and marijuana and alcohol. Was informed/educated on the adverse effects on their physical and mental health. Patient verbally agreed and understood. Patient was offered substance abuse treatment however declined at this time. -Patient was instructed to return to the hospital or seek immediate medical care if their psychiatric or medical symptoms do worsen or reoccur. Allergies Allergy/AdvReac Type Severity Reaction Status Date / Time No Known Allergies Allergy Verified 01/06/25 17:31 Laboratory Results WBC 7.27 10*3/uL (4.50-10.00) 01/07/25 10:16 RBC 4.71 10*6/uL (4.10-5.20) 01/07/25 10:16 Hgb 14.3 g/dL (12.0-15.0) 01/07/25 10:16 Hct 39.9 % (37.2-46.3) 01/07/25 10:16 MCV 84.7 fL (80.0-97.0) 01/07/25 10:16 MCH 30.4 pg (27.0-32.0) 01/07/25 10:16 MCHC 35.8 g/dL (32.0-37.0) 01/07/25 10:16 Plt Count 312 10*3/uL (140-440) 01/07/25 10:16 MPV 8.1 fL (9.5-12.2) L 01/07/25 10:16 Immature Gran % (Auto) 0.3 % 01/07/25 10:16 Neutrophils % 67.7 % 01/07/25 10:16 Lymphocytes % 20.2 % 01/07/25 10:16 Monocytes % 8.9 % 01/07/25 10:16 Eosinophils % 2.2 % 01/07/25 10:16 Basophils % 0.7 % 01/07/25 10:16 Immature Gran # 0.02 10*3/uL (0.00-0.04) 01/07/25 10:16 Neutrophils # 4.92 10*3/uL (1.80-7.70) 01/07/25 10:16 Lymphocytes # 1.47 10*3/uL (0.90-5.00) 01/07/25 10:16 Monocytes # 0.65 10*3/uL (0.20-1.00) 01/07/25 10:16 Eosinophils # 0.16 10*3/uL (0.04-0.35) 01/07/25 10:16 Basophils # 0.05 10*3/uL (0.00-0.10) 01/07/25 10:16 Sodium 138 mmol/L (137-145) 01/07/25 10:16 Potassium 3.8 mmol/L (3.5-5.1) 01/07/25 10:16 Chloride 100 mmol/L (98-107) 01/07/25 10:16 Carbon Dioxide 26 mmol/L (22-30) 01/07/25 10:16 Anion Gap 12 mmol/L 01/07/25 10:16 BUN 14 mg/dL (7-17) 01/07/25 10:16 Creatinine 0.69 mg/dL (0.52-1.04) 01/07/25 10:16 Est GFR (CKD-EPI)AfAm >90 (>60 ml/min/1.73 sqM) 01/07/25 10:16 Est GFR (CKD-EPI)NonAf >90 (>60 ml/min/1.73 sqM) 01/07/25 10:16 Glucose 80 mg/dL (74-99) 01/07/25 10:[address] Glu mg/dL 82 mg/dL 01/07/25 10:16 Hemoglobin A1c 4.5 % (<=6.0) 01/07/25 10:16 Calcium 9.8 mg/dL (8.4-10.2) 01/07/25 10:16 Total Bilirubin 2.6 mg/dL (0.2-1.3) H 01/07/25 10:16 AST 19 U/L (14-36) 01/07/25 10:16 ALT 23 U/L (4-34) 01/07/25 10:16 Alkaline Phosphatase 74 U/L (38-126) 01/07/25 10:16 Total Protein 7.8 g/dL (6.3-8.2) 01/07/25 10:16 Albumin 4.7 g/dL (3.5-5.0) 01/07/25 10:16 TSH 0.914 mIU/L (0.465-4.680) 01/07/25 10:16 SARS-CoV-2 (PCR) Not Detected (Not Detectd) 01/06/25 19:40 Vital Signs Temp 98.3 F 01/11/25 21:00 Pulse 76 01/11/25 21:00 Resp 16 01/11/25 09:00 BP 99/67 01/11/25 21:00 Pulse Ox 98 01/11/25 21:00 FiO2 Patient Condition at Discharge: Stable Plan - Discharge Summary Discharge Rx Participant: No New Discharge Prescriptions: New ARIPiprazole [Abilify] 10 mg PO DAILY 30 Days #30 tab Melatonin 10 mg PO HS 30 Days #60 tab Nicotine Gum (Polacrilex) [Nicorette] 2 mg BUCCAL Q4HR PRN 30 Days #180 pieceofgum PRN Reason: Nicotine Cravings busPIRone HCl [Buspar] 10 mg PO BID 30 Days #60 tab Nicotine 14Mg/24Hr Patch [Habitrol] 1 patch TRANSDERM DAILY 14 Days #14 patch Escitalopram [Lexapro] 20 mg PO DAILY 30 Days #30 tab Discontinued Escitalopram [Lexapro] 10 mg PO DAILY ARIPiprazole [Abilify] 5 mg PO DAILY Discharge Medication List ARIPiprazole [Abilify] 10 mg PO DAILY 30 Days #30 tab 01/12/25 [Rx] Escitalopram [Lexapro] 20 mg PO DAILY 30 Days #30 tab 01/12/25 [Rx] Melatonin 10 mg PO HS 30 Days #60 tab 01/12/25 [Rx] Nicotine 14Mg/24Hr Patch [Habitrol] 1 patch TRANSDERM DAILY 14 Days #14 patch 01/12/25 [Rx] Nicotine Gum (Polacrilex) [Nicorette] 2 mg BUCCAL Q4HR PRN 30 Days #180 pieceofgum 01/12/25 [Rx] busPIRone HCl [Buspar] 10 mg PO BID 30 Days #60 tab 01/12/25 [Rx] Follow up Appointment(s)/Referral(s): Sofía CLAUDIO [Other] - 02/08/25 10:15 am (Intake 02/08 @ 10:15 with Kelsey pascual available ) None,Stated [Primary Care Provider] - 1-2 days Patient Instructions/Handouts: How to Stop Smoking (DC), Schizoaffective Disorder (DC), Polysubstance Abuse (ED) Activity/Diet/Wound Care/Special Instructions: Avoid the use of street drugs and alcohol. Take all medications as prescribed. When you are in need of refills on your medications, please contact your medical provider and/or outpatient psychiatrist/provider to have this done. Please go to your scheduled outpatient appointment for aftercare treatment. If symptoms return or become worse, call the crisis line at and/or go to the nearest emergency room for evaluation. National Suicide Hotline [address] [facility] confidentiality statement: "The information contained in this communication, including attachments, is confidential, may be privileged, and is intended only for the use of the named recipient(s). Unauthorized use, disclosure, forwarding or copying is strictly prohibited and may be unlawful. If you have received this communication in error, please notify me IMMEDIATELY at the phone number or pager listed above. Discharge Disposition: HOME SELF-CARE
[2025-01-12 09:56] VITALS: BP 111/69; PULSE 88; TEMP 96.7
== END 2025-01-12 12:53 | disposition home or self-care (01) | DRG 750 ==
LOC: EC 17:25 → 3MHU 21:32
PROVIDERS: ADMIT Psychiatry & Neurology Psychiatry; ATTEND Psychiatry & Neurology Psychiatry
DX: F29 Unspecified psychosis not due to a substance or known physiological condition (principal); F12.10 Cannabis abuse, uncomplicated; F15.20 Other stimulant dependence, uncomplicated; F17.200 Nicotine dependence, unspecified, uncomplicated; F41.9 Anxiety disorder, unspecified; F60.9 Personality disorder, unspecified; G47.00 Insomnia, unspecified; R45.851 Suicidal ideations; Z79.899 Other long term (current) drug therapy; Z91.51 Personal history of suicidal behavior; Z56.0 Unemployment, unspecified; Z11.52 Encounter for screening for COVID-19; Z28.310 Unvaccinated for COVID-19; Z28.21 Immunization not carried out because of patient refusal
CPT/HCPCS: 80053; 82075; 83036; 84443; 85025; 87635; 99285